=== PATIENT | female | born 1935 | race Caucasian/White ===

== ENCOUNTER 2021-02-24 15:17 | Emergency (ER) | payer MEDICARE, MEDICAID, SELFPAY ==
--- NOTE | ~2021-02-24 | XR_ITS ---
EXAMINATION: XR chest 2V DATE: 02/24/2021 17:04 INDICATION: 2 weeks of cough TECHNIQUE: PA and lateral views of the chest were obtained. COMPARISON: Chest radiograph dated 07/17/2017 FINDINGS: Unchanged mild hyperexpansion of lungs. A couple calcified nodules at the right lung base consistent with old granulomatous disease. An acute mild linear atelectasis/scarring at the lingula. No new airs pace opacities, pulmonary edema, pleural effusion or pneumothorax. Mild cardiomegaly. Mitral annular calcification. Three lead pacemaker/AICD seen with leads projecting over the expected locations of th e right atrial appendage, apex of the right ventricle and overlying the left ventricle likely having traversed the coronary sinus. Severe mid thoracic spondylosis. IMPRESSION: 1. Unchanged mild hyperexpansion of lungs and mild atelectasis/scarring at the lingula. No acute card iopulmonary disease. 2. Mild cardiomegaly. Reviewed, dictated and finalized at location H. LY LIFE COUNSELOR IMPRESSION: 1. Unchanged mild hyperexpansion of lungs and mild atelectasis/scarring at the lingula. No acute cardiopulmonary disease. 2. Mild cardiomegaly.
[2021-02-24 15:50] VITALS: BP 123/53; PULSE 81; RESP 18; TEMP 37.6; O2SAT 96
--- NOTE | 2021-02-24 17:40 | ED.URI ---
HPI - URI/Sore Throat General Chief Complaint: Upper Respiratory Infection Stated Complaint: poss bronchitis History of Present Illness HPI Narrative: This is a 85-year-old female that presents to the urgent care complaining a cough according to patient she believes she has bronchitis states that she gets it all the time. Patient states she do not feel good she has a runny nose congestion and she continues to cough patient denies any fever nausea and/or vomiting Related Data Home Medications Medication Instructions Recorded Confirmed carvedilol 12.5 mg PO DAILY 02/24/21 02/24/21 dicyclomine 10 mg PO TID 02/24/21 02/24/21 losartan 50 mg PO DAILY 02/24/21 02/24/21 simvastatin 20 mg PO DAILY 02/24/21 02/24/21 Allergies Allergy/AdvReac Type Severity Reaction Status Date / Time hydrocodone Allergy Unknown hallucinati Verified 02/24/21 15:59 ons Penicillins Allergy Unknown couldnt Verified 02/24/21 15:59 walk Review of Systems Review of Systems: Cough congestion runny nose All systems reviewed & are unremarkable except as noted in HPI and below PMFSH Comments At time as signature, I have reviewed and agree with nursing past medical, social, surgical and family history. Please see nursing chart for further information. There is no relevant family history pertinent to the presenting complaint. Exam Narrative: GENERAL:Well-appearing, well-nourished, and in no acute distress. HEAD:Normocephalic, EYES: PERRLA ENT: Nares clear, moderate rhinorrhea CHEST: Clear to auscultation. No respiratory distress. Normal peripheral pulses. ABDOMEN: Soft, normal active bowel sounds. EXTREMITIES: Normal range of motion. No edema. SKIN: Warm, dry, no rash. NEURO: No focal deficits. Alert and oriented x3. Course EXPLOSIVES OPERATOR/PA Physician Supervision Ordering Physician: Jorge Carballo APN Date of Service: 02/24/21 Procedure(s): XR chest 2V Accession Number(s): [id number] cc: Jorge Carballo APN; Alex, Miki Lowe MD~ EXAMINATION: XR chest 2V DATE: 02/24/2021 17:04 INDICATION: 2 weeks of cough TECHNIQUE: PA and lateral views of the chest were obtained. COMPARISON: Chest radiograph dated 07/17/2017 FINDINGS: Unchanged mild hyperexpansion of lungs. A couple calcified nodules at the right lung base consistent with old granulomatous disease. An acute mild linear atelectasis/scarring at the lingula. No new airspace opacities, pulmonary edema, pleural effusion or pneumothorax. Mild cardiomegaly. Mitral annular calcification. Three lead pacemaker/AICD seen with leads projecting over the expected locations of the right atrial appendage, apex of the right ventricle and overlying the left ventricle likely having traversed the coronary sinus. Severe mid thoracic spondylosis. IMPRESSION: 1. Unchanged mild hyperexpansion of lungs and mild atelectasis/scarring at the lingula. No acute cardiopulmonary disease. 2. Mild cardiomegaly. Reviewed, dictated and finalized at location H. MACY STUDENT Dictated By: Christiano Sharp MD 02/24/21 1707 Signed By: <Electronically signed by Christiano Sharp MD in OV>02/24/21 1710 Vital Signs Vital signs: Vital Signs Temperature 99.7 F H 02/24/21 15:50 Pulse Rate 81 02/24/21 15:50 Respiratory Rate 18 02/24/21 15:50 Blood Pressure 123/53 L 02/24/21 15:50 Pulse Oximetry 96 02/24/21 15:50 Temperature 99.7 F H 02/24/21 15:50 Pulse Rate 81 02/24/21 15:50 Respiratory Rate 18 02/24/21 15:50 Blood Pressure 123/53 L 02/24/21 15:50 Pulse Oximetry 96 02/24/21 15:50 Discharge Plan Discharge Clinical Impression: Bronchitis Upper respiratory infection Qualifiers: URI type: unspecified URI Qualified Code(s): J06.9 - Acute upper respiratory infection, unspecified Patient Disposition: Home, Self-Care Condition: Stable Instructions: An
== END 2021-02-24 17:45 | disposition home or self-care (01) ==
PROVIDERS: Emergency Provider Nurse Practitioner Family; PCP Family Medicine
DX: J40 Bronchitis, not specified as acute or chronic (principal); J06.9 Acute upper respiratory infection, unspecified; I10 Essential (primary) hypertension; Z96.642 Presence of left artificial hip joint; Z85.42 Personal history of malignant neoplasm of other parts of uterus; Z92.3 Personal history of irradiation; Z92.21 Personal history of antineoplastic chemotherapy
CPT/HCPCS: 71046; 99203; G0463

== ENCOUNTER 2022-06-06 09:41 | Emergency (ER) | payer MEDICARE, MEDICAID, SELFPAY ==
--- NOTE | ~2022-06-06 | XR_ITS ---
EXAMINATION: XR chest 2V DATE: 06/06/2022 10:15 INDICATION: Shortness of breath and cough. TECHNIQUE: Frontal and lateral views of the chest were obtained. COMPARISON: Chest 2 views 02/24/2021 FINDINGS: There is mild scarring at the lung apices. Calcified right lung nodules and calcified right hilar and mediastinal lymph nodes are consistent with old granulomatous disease. There is mild scarr ing in left lower lung zone. No pleural effusion or pneumothorax. The heart size is normal. There is a left chest pacer with leads in right atrium, right ventricle, and coronary sinus. IMPRESSION: 1. Stable mild scarring at the lung apices and in left lower lung zone. Reviewed, dictated and finalized at location D.
[2022-06-06 09:48] VITALS: BP 98/41; PULSE 59; RESP 20; TEMP 36.8; O2SAT 97
--- NOTE | 2022-06-06 09:52 | ED.URI ---
HPI - URI/Sore Throat General Chief Complaint: Upper Respiratory Infection Stated Complaint: Cough Time Seen by Provider: 06/06/22 09:52 Source: patient and RN notes reviewed History of Present Illness HPI Narrative: Patient is an 87-year-old female who presents to urgent care with complaints of a cough, dizziness and fatigue since Monday. Patient states that she has a history of bronchitis. Denies any known fevers at home. States that she has increased dizziness upon standing. Denies any nausea or vomiting. Patient states she took cough medicine last night but otherwise has not used anything else [id number]. Patient is here with her granddaughter. No other acute complaints. No acute distress noted. Patient aware of the plan of care. Some parts of this dictation were generated by voice recognition software and may contain typographical and/or grammatical inaccuracies. Related Data Home Medications Medication Instructions Recorded Confirmed carvedilol 12.5 mg tablet 12.5 mg PO DAILY 02/24/21 06/06/22 losartan 50 mg tablet 50 mg PO DAILY 02/24/21 06/06/22 simvastatin 20 mg tablet 20 mg PO DAILY 02/24/21 06/06/22 tizanidine 2 mg tablet 2 mg PO DIRECTED 06/06/22 06/06/22 Allergies Allergy/AdvReac Type Severity Reaction Status Date / Time hydrocodone Allergy Unknown hallucinati Verified 06/06/22 10:01 ons Penicillins Allergy Unknown couldnt Verified 06/06/22 10:01 walk Review of Systems Review of Systems: CONSTITUTIONAL: Denies fever, chills, or sweats. EYES: Denies visual changes, redness, or discharge. ENT: Denies rhinorrhea, congestion, sore throat, or otalgia. CARDIOVASCULAR: Denies chest pain, palpitations, or edema. RESPIRATORY: Reports of cough, and dyspnea GASTROINTESTINAL: Denies abdominal pain, nausea, vomiting, or diarrhea. GENITOURINARY: Denies dysuria or hematuria. SKIN: Denies rash or itching. MUSCULOSKELETAL: Denies back pain, joint pain, or myalgia. NEUROLOGIC: Reports of dizziness and fatigue All other systems reviewed are negative, except as documented in HPI. PMFSH Comments At the time of my signature, I reviewed and agree with the nursing past medical, surgical, social, and family history. There is no relevant family history pertinent to the patient complaint. Exam Narrative: GENERAL: This is a well-nourished, well-developed patient, in no apparent distress. HEAD: normocephalic, atraumatic. EYES: PERRL. Sclera clear/white. Vision is grossly intact. EARS: External ears normal NOSE: External nose normal with no obvious nasal discharge, nares without redness, no rhinorrhea. THROAT: Mucous membranes moist, posterior pharynx clear. NECK: Neck supple, non-tender without lymphadenopathy, masses or thyromegaly. CARDIOVASCULAR: Bradycardic RESPIRATORY: Coarse throughout with inspiratory wheezes bibasilar and diminished SKIN: warm, intact with no suspicious lesions or rash, good texture and turgor. NEURO: awake, alert, and oriented to person, place and time. There were no obvious focal neurologic abnormalities. EXTREMITIES: No clubbing, cyanosis, or edema. Course Course Level of Care: Express Care Visit Vital Signs Vital signs: Vital Signs Temperature 98.2 F 06/06/22 09:48 Pulse Rate 59 L 06/06/22 09:48 Respiratory Rate 20 06/06/22 09:48 Blood Pressure 98/41 L 06/06/22 09:48 Pulse Oximetry 97 06/06/22 09:48 Oxygen Delivery Room Air 06/06/22 09:48 Temperature 98.2 F 06/06/22 09:48 Pulse Rate 59 L 06/06/22 09:48 Respiratory Rate 20 06/06/22 09:48 Blood Pressure 98/41 L 06/06/22 09:48 Pulse Oximetry 97 06/06/22 09:48 Oxygen Delivery Room Air 06/06/22 09:48 Reviewed MDM - URI/Sore Throat MDM Narrative Medical decision making narrative: Explained lab and test results to the patient. She is aware that chest x-ray is negative for pneumonia. EKG is within normal limits, paced. Symptoms are consistent with a common cold/viral bronchit
--- NOTE | 2022-06-06 10:39 | ECG_ITS ---
Measurements Intervals [place] Rate: 63 P: 101 NE: 148 QRS: 115 QRSD: 122 T: 89 QT: 464 QTc: 476 Interpretive Statements ELECTRONIC ATRIAL PACEMAKER ELECTRONIC VENTRICULAR PACEMAKER atypical EKG NO PREVIOUS ECG AVAILABLE FOR COMPARISON Electronically Signed On 06-06-2022 12:28:14 CDT by Mickey Blue M.D.
== END 2022-06-06 11:17 | disposition left against medical advice (07) ==
PROVIDERS: Emergency Provider Nurse Practitioner Family; PCP Family Medicine
DX: J40 Bronchitis, not specified as acute or chronic (principal); N39.0 Urinary tract infection, site not specified; I95.9 Hypotension, unspecified; E78.00 Pure hypercholesterolemia, unspecified; I10 Essential (primary) hypertension; Z96.642 Presence of left artificial hip joint; Z85.42 Personal history of malignant neoplasm of other parts of uterus; Z92.21 Personal history of antineoplastic chemotherapy; Z92.3 Personal history of irradiation; Z95.0 Presence of cardiac pacemaker
CPT/HCPCS: 71046; 81003; 87077; 87086; 87186; 93005; 99213; G0463

== ENCOUNTER 2023-04-24 13:58 | Emergency (ER) | payer MEDICARE, MEDICAID, SELFPAY ==
[2023-04-24 14:17] VITALS: BP 131/52; PULSE 60; RESP 16; TEMP 36.4; O2SAT 100
--- NOTE | 2023-04-24 14:35 | ED.URI ---
HPI - URI/Sore Throat General Chief Complaint: Upper Respiratory Infection Stated Complaint: Runny Nose Source: patient Mode of arrival: ambulatory Limitations: no limitations History of Present Illness HPI Narrative: 88-year-old female presented for complaint of blowing her nose and sneezing this morning. States it is better since arriving in clinic. Denies any other complaints or concerns. Related Data Home Medications Medication Instructions Recorded Confirmed losartan 50 mg tablet 50 mg PO DAILY 02/24/21 04/24/23 simvastatin 20 mg tablet 20 mg PO DAILY 02/24/21 04/24/23 diphenoxylate-atropine 2.5 2.5 tablet PO QID PRN Diarrhea 04/24/23 04/24/23 mg-0.025 mg tablet Allergies Allergy/AdvReac Type Severity Reaction Status Date / Time hydrocodone Allergy Unknown hallucinati Verified 06/06/22 10:01 ons Penicillins Allergy Unknown couldnt Verified 06/06/22 10:01 walk Review of Systems Review of Systems: CONSTITUTIONAL: Denies body aches, fever, chills, or sweats. EYES: Denies visual changes, redness, or discharge. ENT: reports rhinorrhea, denies sore throat, or otalgia. CARDIOVASCULAR: Denies chest pain, palpitations, or edema. RESPIRATORY: Denies cough or dyspnea. GASTROINTESTINAL: Denies abdominal pain, nausea, vomiting, or diarrhea. GENITOURINARY: Denies dysuria or hematuria. SKIN: Denies rash, itching, or wounds. MUSCULOSKELETAL: Denies back pain, joint pain, or myalgia. NEUROLOGIC: Denies headache, numbness, tingling, or weakness. All systems reviewed & are unremarkable except as noted in HPI and below [facility] Past Medical History Medical History (Updated 04/24/23 @ 14:44 by Vivi Kuhn, [place]) HTN (hypertension) Comments At time of signature, I have reviewed and agree with nursing past medical, surgical, social and family history unless otherwise noted. Please see nursing chart for further information. There is no relevant family history pertinent to the presenting complaint Exam Narrative: GENERAL: Well-appearing EYES: EOMI. No redness or drainage. Conjunctivae normal. ENT: Mucous membranes pink and moist. No rhinorrhea. NECK: Normal AROM. Supple. CHEST: No respiratory distress. Clear to auscultation. HEART: Regular rate and rhythm. No murmur appreciated. Normal peripheral pulses. ABDOMEN: Soft, nontender, nondistended, normal active bowel sounds. EXTREMITIES: Normal range of motion. No edema. SKIN: Warm, dry, no rash. Capillary refill normal. Normal skin turgor. NEURO: No focal deficits. Alert and oriented x3. Gait steady. PSYCH: Normal affect. Course Course Emergency Course: Patient is aware of diagnosis, understands and agrees to treatment plan. Anticipatory guidance given. Patient agrees to follow-up as directed and is aware of reasons to seek care at the emergency department. Portions of this record may have been created with voice recognition software Level of Care: Express Care Visit Vital Signs Vital signs: Vital Signs Temperature 97.6 F 04/24/23 14:17 Pulse Rate 60 04/24/23 14:17 Respiratory Rate 16 04/24/23 14:17 Blood Pressure 131/52 L 04/24/23 14:17 Pulse Oximetry 100 04/24/23 14:17 Oxygen Delivery Room Air 04/24/23 14:17 Temperature 97.6 F 04/24/23 14:17 Pulse Rate 60 04/24/23 14:17 Respiratory Rate 16 04/24/23 14:17 Blood Pressure 131/52 L 04/24/23 14:17 Pulse Oximetry 100 04/24/23 14:17 Oxygen Delivery Room Air 04/24/23 14:17 MDM - URI/Sore Throat MDM Narrative Medical decision making narrative: Negative COVID test reviewed with patient. Discussed physical exam findings. Advised supportive measures and signs/symptoms to go to the ER. Pt is appropriate for outpt treatment and f/u. Differential Diagnosis Differential diagnosis: Likely upper respiratory infection, sinusitis, viral infection and other (seasonal allergies, rhinits) Discharge Plan Discharge Clinical Impression: Acu
== END 2023-04-24 14:44 | disposition home or self-care (01) ==
PROVIDERS: Emergency Provider Nurse Practitioner Family; PCP Family Medicine
DX: J00 Acute nasopharyngitis [common cold] (principal); Z20.822 Contact with and (suspected) exposure to COVID-19; I10 Essential (primary) hypertension
CPT/HCPCS: 87426; 87804; 99213; G0463

== ENCOUNTER 2024-12-02 11:13 | Emergency (ER) | payer MEDICARE, MEDICAID, SELFPAY ==
--- OUTSIDE RECORDS SUMMARY | 2007-08-14 08:25 | XMS_ITS | Continuity of Care Document ---
Author Organization [facility] Address [address] [place] [address] [place] [address] Phone Care Team Providers Care Photographer Aerial Name Role Phone Ankur Valladares MD Unavailable Unavailable Procedures Procedure Date Eye Exam, New Patient Advance Directives Directive Yes / No Effective Date File Name No Information Encounters Encounter Description Practice Location Reason(s) For Visit Diagnoses Date Provider Providers Copied on Encounter [facility], [address] [place] [address] [address], [place], [place], [id number], [place] tel:[phone] SEC [facility] Professional No Information 0-200 8 Jacquelyn Pascual. [address] [facility] [place], [place], [address], [place]. tel:[phone] Referring Provider: Johnny Melgoza MD, [address] [place], [address]. tel:[phone] Family History Family Member Type Diagnosis Age At Onset No Information Payers Payer name Insurance type Covered democrat ID Authoriza tion(s) No Information Social History Type Description Quantity Date Captured Comments Sex Female Smoking Status No Information Chief Complaint And Reason For Visit No Information Reason For Referral Reason For Referral No Information History Of Present Illness Encounter Date Complaint History Of Prese nt Illness No Information Functional Status Date Functional Assessmen t No Information Instructions Date Instruction Additional Infor mation No Information Assessments Type Assessment Date No Information Patient Care Teams Name Effective Dates (start - stop) Status Members No Information
--- OUTSIDE RECORDS SUMMARY | 2007-08-14 08:25 | XMS_ITS | Continuity of Care Document ---
Author Organization [facility] Address [address] [place] [address] [place] [address] Phone Care Team Providers Care Web Assistant Name Role Phone Ankur Valladares MD Unavailable Unavailable Procedures Procedure Date Eye Exam, New Patient Advance Directives Directive Yes / No Effective Date File Name No Information Encounters Encounter Description Practice Location Reason(s) For Visit Diagnoses Date Provider Providers Copied on Encounter [facility], [address] [place] [address] [address], [place], [place], [id number], [place] tel:[phone] SEC [facility] Professional No Information 0-200 8 Jacquelyn Pascual. [address] [facility] [place], [place], [address], [place]. tel:[phone] Referring Provider: Johnny Melgoza MD, [address] [place], [address]. tel:[phone] Family History Family Member Type Diagnosis Age At Onset No Information Payers Payer name Insurance type Covered constitution party ID Authoriza tion(s) No Information Social History [...]
--- OUTSIDE RECORDS SUMMARY | 2022-12-06 04:30 | XMS_ITS | Continuity of Care Document ---
Author Organization [employer] [facility] Address [address] [place] [address] Phone Care Team Providers Care Exhibition Carver Name Role Phone Saloni Nam OD Unavailable Unavailable Allergies, Adverse Reactions, Alerts Substance Reaction Status Criticality PENICILLIN Active No Information Medications Medication Instructions Dosage Effective Dates (start - stop) Status Comments Miebo 100 % eye drops instill 1 drop by ophthalmic route 4 times every day into affected eye(s) 1.00 drop - Active carvedilol 12.5 mg tablet take 1 tablet by oral route 2 times every day with food 12.5 MG - Active ferrous sulfate 325 mg (65 mg iron) tablet take 1 tablet by oral route every day 325 MG - Active potassium chloride ER 20 mEq tablet,extended release take 1 tablet by oral route every day with food 20 MEQ - Active Glucosamine Complex-MSM capsule once daily - Active Fiber (psyllium husk) 0.4 gram capsule once daily - Active Calcium 500 With D 500 mg (1,250 mg)-400 unit tablet take one tablet daily - Active acetaminophen 500 mg tablet take 2 tablet by oral route every 6 hours as needed 1000 MG - Active aspirin 81 mg tablet,delayed release take 1 tablet by oral route every day 81 MG - Active losartan 50 mg tablet take 1 tablet by oral route every day 50 MG - Active multivitamin tablet take 1 tablet by oral route every day with food - Active simvastatin 20 mg tablet take 1 tablet by oral route every day in the evening 20 MG - Active Probiotic 10 billion cell capsule take one tablet daily - No Longer Active spironolactone 25 mg tablet take 1 tablet by oral route every day 25 MG - No Longer Active Procedures Procedure Date No Charge Optomap Fundus Photos Oct-05-05 023 Refraction Office/outpatient Visit, Est No Charge [facility] After Cataract Laser Surgery No Charge Refraction Post-op Follow-up Visit Fundus Photography W/ Report No Charge Refraction After Cataract Laser Surgery Eye Exam, New Patient Advance Directives Directive Yes / No Effective Date File Name No Information Encounters Encounter Description Practice Location Reason(s) For Visit Diagnoses Date Provider Providers Copied on Encounter Office/outpa tient Visit, Est [facility], [address] [place] [address] [address], [place], [place], [address], [place] tel:[phone] SEC Jame ACHARYA Professional Cataract check (chief complaint) Dry eye syndrome of bilateral lacrimal glandsChoroid al nevus of left eyeRPE mottling of maculaPresenc e of intraocular lens Oct-0 3 Cyril OD Saloni. [address] [place] [address] [address], [place], [place], [address], [place]. tel:[phone] Referring Provider: Miki Johnson MD, [facility] [place], [address]. tel:[phone] [facility], [address], [place], [place], [address], [place] tel:[phone] SEC Carr PATRIZIA Professional 1 month s/p YAG PC (chief complaint) Post op visitOther secondary cataract, right eye Oct-0 1 Pancho Resendiz. [address] [facility], [address], [place], [place], [address], [place]. tel:[phone] Referring Provider: Miki Johnson MD, [address] [place], [address]. tel:[phone] [facility], [address], [place], [place], [address], [place] tel:[phone] SEC Jame [place] Professional Complete Exam (chief complaint) Presence of intraocular lensDry eye syndrome of bilateral lacrimal glandsChoroid al nevus of left eyeOther secondary cataract, bilateralRPE mottling of maculaOther secondary cataract, left eye Sep-1 0- 1 Pancho Resendiz. [address] [facility], [address], [place], [place], [address], [place]. tel:[phone] Referring Provider: Miki Johnson MD, [address] [place], [address]. tel:[phone] [facility], [address] [facility] [address], [place], [place], [address], [place] tel:[phone] Tom No Information Sep-0 1 Mcnamara OD Mickey. [address] [facility] [place], [address], [place]. tel:[phone] Family History Family Member Type Diagnosis Age At Onset No Information Payers Payer name Insurance type Covered libertarian ID Authoriza tican(s) AARP Medicare Complete CI [id number] Medicaid [facility] [id number] Social History Type Description Quantity Date Captured Comments Alcohol Use Details No Caffeine Use Details Tobacco Use Status Ex-cigarette smoker 023 Smoking Status Former smoker Smoking Tobacco Use Details Cigarette: Age Started: 24, Age Stopped: 35, Years Used 11 Cigarette: 3 Packs per day, Pack Year: 33 Sex Female Chief Complaint And Reason For Visit From encounter dated '12/06/2022 09:30'. Cataract check (chief complaint). Description: The 87 year old patient presents for evaluation of Cataract check in the right eye and left eye. Pt. states she feels her vision is good with her glasses at distance. Pt does c/o after 15 minutes of reading or doing close work vision gets blurry. Pt. does states her OD has felt sore but past 2 weeks has felt better. Pt. not using any drops at present. Reason For Referral Reason For Referral No Information Plan Of Treatment Date Type Action Status Goal Tobacco cessation counseling completed Patient Education Learning About YAG Lase r Capsulotomy completed Patient Education Learning About YAG Lase r Capsulotomy completed History Of Present Illness Encounter Date Complaint History Of Prese nt Illness Cataract check The 87 year old patient presents for evaluation of Cataract check in the right eye and left eye. Pt. states she feels her vision is good with her glasses at distance. Pt does c/o after 15 minutes of reading or doing close work vision gets blurry. Pt. does states her OD has felt sore but past 2 weeks has felt better. Pt. not using any drops at present. 1 month s/p YAG PC The 85 year o ld female presents for evaluation of 1 month s/p YAG PC in the left eye and YAG PC OD. Patient states she is unsure if VA is better with the left eye since the laser. Patient thought VA was better after but not sure now. c/o with the right eye is difficulty driving at night due to glare and trouble seeing solitaire on her phone. Complete Exam The 85 year old female presents for evaluation of Complete Exam in the right eye and left eye. 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 Pt reports MILLY was 3 yrs ago. Pt she has trouble playing solitaire on her phone, she doesn't drive anymore because of her VA, and is bothered by glare from lights, OU, x couple yrs. Pt reports she doesn't use any gtts, OU. Functional Status Date Functional Assessmen t No Information Instructions Date Instruction Additional Infor mation Impression/Plan Impression/Plan Impression/Plan Assessments Type Assessment Date assessment Dry eye syndrome of bilateral la crimal glands assessment Choroidal nevus of left eye assessment RPE mottling of macula assessment Presence of intraocular lens Dec Patient Care Teams Name Effective Dates (start - stop) Status Members No Information
--- OUTSIDE RECORDS SUMMARY | 2022-12-06 04:30 | XMS_ITS | Continuity of Care Document ---
Author Organization [facility] Address [address] [facility] [address] [place] [address] Phone Care Team Providers Care Mellowing Machine Operator Name Role Phone Saloni Nam OD Unavailable [...] Copied on Encounter Office/outpa tient Visit, Est [facility], [address] [place] [address] [address], [place], [place], [address], [place] tel:[phone] SEC Jame ACHARYA Professional Cataract check (chief complaint) Dry eye syndrome of bilateral lacrimal glandsChoroid al nevus of left eyeRPE mottling of maculaPresenc e of intraocular lens Oct-0 3 Cyril OD Saloni. [address] [place] [address] [address], [place], [place], [address], [place]. tel:[phone] Referring Provider: Miki Johnson MD, [facility] [place], [address]. tel:[phone] [facility], [address], [place], [place], [address], [place] tel:[phone] SEC [place] PATRIZIA Professional 1 month s/p YAG PC (chief complaint) Post op visitOther secondary cataract, right eye Oct-0 1 Pancho Resendiz. [address] [facility], [address], [place], [place], [address], [place]. tel:[phone] Referring Provider: Miki Johnson MD, [address] [place], [address]. tel:[phone] [facility], [address], [place], [place], [address], [place] tel:[phone] SEC Jame [place] Professional Complete Exam (chief complaint) Presence of intraocular lensDry eye syndrome of bilateral lacrimal glandsChoroid al nevus of left eyeOther secondary cataract, bilateralRPE mottling of maculaOther secondary cataract, left eye Sep-1 0- 1 Pancho Resendiz. [address] [facility], [address], [place], [place], [address], [place]. tel:[phone] Referring Provider: Miki Johnson MD, [address] [place], [address]. tel:[phone] [facility], [address] [facility] [address], [place], [place], [address], [place] tel:[phone] Tom No Information Sep-0 1 Mcnamara OD Mickey. [address] [place], [address], [place]. tel:[phone] Family History Family Member Type Diagnosis Age At Onset No Information Payers Payer name Insurance type Covered democrat ID Authoriza tican(s) AARP Medicare Complete CI [id number] Medicaid [facility] [id number] Social History Type Description Quantity Date Captured [...]
--- NOTE | ~2024-12-02 | XR_ITS ---
EXAMINATION: XR ribs RT 2V, 12/02/2024 11:45 CDT HISTORY: fall COMPARISON: No comparisons available. Findings: Nondisplaced fracture of the lateral 10th rib No significant degenerative changes. Soft tissues unremarkable. Impression: Fracture detailed above Reviewed, dictated and finalized at location P. Impression: Fracture detailed above
[2024-12-02 11:20] VITALS: BP 134/59; PULSE 78; RESP 20; TEMP 36.6; O2SAT 100
--- NOTE | 2024-12-02 11:36 | ED.FEMALEGU ---
HPI - Female Genitourinary General Chief complaint: Urogenital-Female Stated complaint: Fall Injury/Urinary Pain Time Seen by Provider: 12/02/24 11:38 Source: patient and RN notes reviewed Mode of arrival: ambulatory Limitations: no limitations History of Present Illness HPI Narrative: 89-year-old female presents with concern for right flank pain that radiates to the right upper abdomen. She reports 3 days ago she was trying to sit down on the toilet because she felt like she was going to black out when she fell into the bathtub on her right side. She reports she blacks out often because her blood pressure gets low. She reports she has increased her fluid intake over the week and has been drinking medial supplements to improve her blood pressure. She was recently treated for UTI with Macrobid. She is wanting to make sure the UTI is cleared. She denies fever, body aches, chills, sweats, nausea, vomiting, bruising. MD elicited complaint: flank pain and other Related Data Home Medications ?Medication ?Instructions ?Recorded ?Confirmed ?Last Taken ?Type losartan 50 mg tablet 50 mg PO DAILY 02/24/21 04/24/23 Unknown History simvastatin 20 mg tablet 20 mg PO DAILY 02/24/21 04/24/23 Unknown History diphenoxylate-atropine 2.5 2.5 tablet PO QID PRN Diarrhea 04/24/23 04/24/23 Unknown History mg-0.025 mg tablet cholestyramine (with sugar) 4 gram ea 12/02/24 Unknown History oral powder donepezil 5 mg tablet mg 12/02/24 Unknown History fluoxetine 20 mg capsule mg 12/02/24 Unknown History sacubitril 24 mg-valsartan 26 mg tablet 12/02/24 Unknown History tablet (Entresto) Allergies Allergy/AdvReac Type Severity Reaction Status Date / Time hydrocodone Allergy Unknown hallucinati Verified 12/02/24 11:31 ons Penicillins Allergy Unknown couldnt Verified 12/02/24 11:31 walk Review of Systems Review of Systems: CONSTITUTIONAL: Denies malaise, chills, sweats, or fever. CARDIOVASCULAR: Denies chest pain, palpitations, or edema. RESPIRATORY: Denies cough or dyspnea. GASTROINTESTINAL: Denies abdominal pain, nausea, vomiting, diarrhea GENITOURINARY: Denies dysuria, frequency, urgency, suprapubic pressure. Denies flank pain or hematuria. SKIN: Denies bruising, rash or itching. MUSCULOSKELETAL: Reports right back/rib pain pain. Denies myalgia. All systems reviewed & are unremarkable except as noted in HPI and below [facility] Past Medical History Medical History (Updated 12/02/24 @ 12:14 by Sanam Carlin NP) HTN (hypertension) Comments At time of signature, agree with nursing past medical, surgical, social and family history. There is no relevant family history pertinent to the presenting complaint Exam Narrative: GENERAL: Well-appearing, well-nourished, and in no acute distress. HEAD: Normocephalic. EYES: PERRLA, conjunctivae clear. NECK: Supple. No lymphadenopathy CHEST: Clear to auscultation. No respiratory distress. HEART: Regular rate and rhythm. ABDOMEN: Soft, nontender upon palpation, nondistended, no palpable or pulsatile masses, no guarding. No CVA tenderness. Right posterior rib pain, right anterior rib pain SKIN: Warm, dry, no rash. No bruising, open skin noted NEURO: Alert and oriented x3. PSYCH: Normal mood and affect Course Course Emergency Course: Patient is aware of diagnosis, understands and agrees to treatment plan. Anticipatory guidance given. Patient agrees to follow-up as directed and is aware of reasons to seek care at the emergency department. Portions of this record may have been created with voice recognition software Level of Care: Express Care Visit Vital Signs Vital signs: Reviewed. MDM - Female Genitourinary MDM Narrative Medical decision making narrative: Exam findings and UA show no acute concerns or changes; patient is non-toxic appearing and is in no distress. Patient is appropriate for outpatient treatment and follow-up. Differential Diagnosis Differential diagnosis: Likely urinary tract infection and cystitis Imaging Data My impression: My fracture statement Radiologist's impression: Seven EXAMINATION: XR ribs RT 2V, 12/02/2024 11:45 CDT HISTORY: fall COMPARISON: No comparisons available. Findings: Nondisplaced fracture of the lateral 10th rib No significant degenerative changes. Soft tissues unremarkable. Impression: Fracture detailed above Critical Care Time Critical Care Time Critical Care Time: No Discharge Plan Discharge Clinical Impression: Fracture of rib Patient Disposition: Home Condition: Stable Instructions: Rib Fracture (ED) Additional Instructions: Pain may get worse for a week and last for up to eight weeks.The most important thing is to get your pain under control. Breathing exercises will not be effective unless your pain is controlled. Take Tylenol as needed for pain. Strenuous activities should be avoided for the first 3-4 weeks, after which you can commence physical activity as pain allows. If the pain is increasing you may be doing too much. Cough and deep breath at least 10 times per hour. Try holding a cushion firmly against the painful site when you deep breath and cough to decrease the pain. Sit out of bed and keep moving as much as you feel comfortable. This will decrease the risk of developing lung complications. You have any worsening symptoms urgent concerns please go to the emergency room Patient Language: Icelandic Prescriptions: No Action losartan 50 mg tablet 50 mg PO DAILY simvastatin 20 mg tablet 20 mg PO DAILY diphenoxylate-atropine 2.5-0.025 mg tablet 2.5 tablet PO QID PRN (Reason: Diarrhea) donepezil 5 mg tablet fluoxetine 20 mg capsule cholestyramine (with sugar) 4 gram powder sacubitril-valsartan [Entresto] 24-26 mg tablet Follow-up/Referrals: Harms,Miki Lowe M.D. [Primary Care Provider] Referral Note: Rib fracture Time of Disposition: 12:23
[2024-12-02 11:44] LABS: EDUAAPPEAR Clear; EDUABILI Negative (Negative); EDUABLOOD Negative (Negative); EDUACOLOR1 Yellow; EDUAGLUCOSE Negative (Negative); EDUAKETONE Negative (Negative); EDUALEUKO Trace (Negative); EDUANITRATE Negative (Negative); EDUAPH 5.5; EDUAPROTEIN Negative (Negative); EDUASPGRAVITY 1.020; EDUAUROBILI 0.2
--- OUTSIDE RECORDS SUMMARY | 2024-12-02 11:50 | XMS_ITS | Encounter Summary ---
Author Organization [facility] Healthcare Address [address] [place] [address] Care Team Providers Care Associate Professor Of Music Name Role Phone Kane Jara MD Unavailable [phone] Puja Clement NP Unavailable [phone] Miki Johnson MD Primary Care Provider [phone] Brianda Lopez MD Unavailable [phone] Vito Pang MD Unavailable [phone] Chaim Mitchell MD Unavailable [phone] Andree Calloway MA Unavailable [phone] Anne-Marie Graves RN Unavailable [phone] Encounter Details Date Type Department Care Team (Late st Contact Info) Description 04/09/2024 Telephone [facility] [address] [place] [address] Miki Johnson MD [address] [place] [address] Social History Tobacco Use Types Packs/Day Years Used Date Smoking Tobacco: Former Cigarettes 1.5 11 1 971 - 1982 Smokeless Tobacco: Never Alcohol Use Standard Drinks/Week Comments No 0 (1 standard drink = 0.6 oz pur e alcohol) Social Connection and Isolation Panel Answer Date Recorded In a typical week, how many times do you talk on the phone with family, friends, or neighbors? More than three times a week 03/22/2021 How often do you get togethe r with friends or relatives? Three times a week 03/22/2021 Attends Sabianist Services Not on file 03/22 Do you belong to any clubs o r organizations such as nondenominational groups, unions, fraternal or athletic groups, or school groups? No 03/22/2021 How often do you attend meet ings of the clubs or organizations you belong to? Never 03/22/2021 Are you , , di vorced, , never , or living with a partner? 03/22/2021 AUDIT-C Answer Date Recorded Q1: How often do you have a drink containing alc ohol? Never 02/08/2024 Average Number of Drinks Not on file 024 Frequency of Binge Drinking Not on file 07/2023 Overall Financial Resource Strain (CARDIA) Answe r Date Recorded How hard is it for you to pa y for the very basics like food, housing, medical care, and heating? Not hard at all 03/22/2021 PHQ-2 Answer Date Recorded PHQ-2 Total Score (If total score is 3 or more points, staff should administer the PHQ-9) 0 11/09/2023 PRAPARE - Transportation Answer Date Re corded In the past 12 months, has l ack of transportation kept you from medical appointments or from getting medications? No 03/06 In the past 12 months, has l ack of transportation kept you from meetings, work, or from getting things needed for daily living? No 03/22/2021 Housing Stability Vital Sign Answer Ney e Recorded In the last 12 months, was t here a time when you were not able to pay the mortgage or rent on time? No 03/22/2021 In the last 12 months, how many places have you lived? 1 03/22/2021 In the last 12 months, was t here a time when you did not have a steady place to sleep or slept in a longterm (including now)? No 03/22/2021 Personal Safety Answer Date Recorded Have you ever been in or are you currently in a harmful physical or emotional relationship or is someone making you feel afraid or unsafe? 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 [address] [place] [address] Draw Frame Operator Obstetrics and Gynecology 12/17/18 Puja Clement NP [address] [facility] [address] [place] [address] Nurse Practitioner Gastroenterology 12/17/18 Brianda Lopez MD [address] [place] [address] Consulting Physician Gastroenterology 03/20/21 Vito Pang MD [address] [facility] [address] [place] [address] Surgeon General Surgery 01/27/24 Chaim Mitchell MD [address] [facility] [address] [place] [address] Consulting Physician Cardiovascular Disease 09/12/24 Andree Calloway MA [address] [place] [address] [address] [place] [address] ACO Care Data Deliverables Manager 10/25/24 10/27/24 Anne-Marie Graves RN [address] [place] [address] [address] [place], [place] [id number] Assistant Mechanic 10/28/24 11/18/24 documented as of this encounter
--- OUTSIDE RECORDS SUMMARY | 2024-12-02 11:50 | XMS_ITS | Encounter Summary ---
Author Organization [facility] Healthcare Address [address] [place] [address] Care Team Providers Care Cover Operator Name Role Phone Kane Jara MD Unavailable [phone] Puja Clement NP Unavailable [phone] Miki Johnson MD Primary Care Provider [phone] Brianda Lopez MD Unavailable [phone] Barby Hopson MA Unavailable [phone] Vito Pang MD Unavailable [phone] Chaim Mitchell MD Unavailable [phone] Andree Calloway MA Unavailable [phone] Anne-Marie Graves RN Unavailable [phone] Reason for Visit * Reason Onset Date Comments Scheduling Appointments 04/26/2021 Reminder call for DEXA. Encounter Details Date Type Department Care Team (Late st Contact Info) Description 04/26/2021 Telephone [facility] [address] [place] [address] Otoniel Booth RT Scheduling Appointments (Reminder call for DEXA. ) Social History Tobacco Use Types Packs/Day Years [...] relatives? Three times a week 03/22/2021 Attends Worship Services Not on file 03/22 Do you belong to any clubs o r organizations such as hoahaoism groups, unions, fraternal or athletic groups, or school groups? No 03/22/2021 How often do you attend meet ings of the clubs or organizations you belong to? Never 03/22/2021 Are you , , di vorced, , never , or living with a partner? 03/22/2021 AUDIT-C Answer Date Recorded Q1: How often do you have a drink containing alc ohol? Never 03/18/2021 Average Number of Drinks Not on file 022 Q3: How often do you have si x or more drinks on one occasion? Never 03/18/2021 Overall Financial Resource Strain (CARDIA) Answe r Date Recorded How hard is it for you to pa y for the very basics like food, housing, medical care, and heating? Not hard at all 03/22/2021 PHQ-2 Answer Date Recorded PHQ-2 Total Score 0 03/25/2021 PRAPARE - Transportation Answer Date Re corded [...] place to sleep or slept in a nursing home (including now)? 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 difficile suspected 12/15/2023 12/18/202312/15 3:07 AM CDT C. difficile suspected 12/18/2023 12/18/202312/17 4:25 PM CDT documented as of this encounter Care Teams Cover Operator Relationship Specialty Start Date End Date Miki Johnson MD [address] [place] [address] PCP - General 01/21/19 Kane Jara MD [address] [facility] [address] [place] [address] Animal Trainer Supervisor Obstetrics and Gynecology 12/17/18 Puja Clement NP [address] [facility] [address] [place] [address] Nurse Practitioner Gastroenterology 12/17/18 Brianda Lopez MD [address] [place] [address] Consulting Physician Gastroenterology 03/20/21 Barby Hopson MA [address] [place] [address] [address] [place], [place] [id number] ACO Care Wall Worker 04/14/22 04/14/22 Vito Pang MD [address] [facility] [address] [place] [address] Surgeon General Surgery 01/27/24 Chaim Mitchell MD [address] [facility] [address] [place] [address] Consulting Physician Cardiovascular Disease 09/12/24 Andree Calloway MA [address] [place] [address] [address] [place] [address] ACO Care Wall Worker 10/25/24 10/27/24 Anne-Marie Graves RN [address] [place] [address] [address] [place] [address] Chef De Cuisine 10/28/24 11/18/24 documented as of this encounter
--- OUTSIDE RECORDS SUMMARY | 2024-12-02 11:50 | XMS_ITS | Encounter Summary ---
Author Organization [facility] Address [address] [place] [address] Phone Care Team Providers Care Cognos Analyst Name Role Phone Kourtney Miller Primary Care Provider Unavailab Miki Juarez MD Primary Care Provider Ashley Núñez LPN Unavailable Unavailabl Ayana Raymond DO Primary Care Provider Ashley Núñez LPN Unavailable UnavailOpal Todd RN Unavailable [phone] Kane Jara MD Unavailable [phone] Puja Clement NP Unavailable [phone] Miki Johnson MD Primary Care Provider Belinda Gross RN Unavailable [phone] Brianda Lopez MD Unavailable [phone] Barby Hopson MA Unavailable [phone] Vito Pang MD Unavailable Chaim Mitchell MD Unavailable [phone] Andree Calloway MA Unavailable [phone] Anne-Marie Graves RN Unavailable [phone] Encounter Details Date Type Department Care Team (Late st Contact Info) Description 03/22/2017 Orders Only [facility] ProviderBrandy MD [address] [place] [address] Social History Tobacco Use Types Packs/Day Years Used Date Smoking Tobacco: Former Smokeless Tobacco: Never Comments:Smoking History Pac ks/day: 3 Packs Alcohol Use Standard Drinks/Week Comments No 0 (1 standard drink = 0.6 oz pur e alcohol) Comments No Sex and Gender Information Value Date Recorded Sex Assigned at Not on file Legal Sex Female 10:33 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 us Historical Provider LAB BLOOD ORDERABLES Opal l Result documented in this encounter Visit Diagnoses Not on filedocumented in this encounter Additional Health Concerns Infection Onset Date Last Indicated Resolved Time COVID: Suspected 03/01/2021 03/01/2021 03/01/2021 8:05 PM FREELANCE WEB DESIGNER C. difficile suspected 12/15/2023 12/18/202312/15 3:07 AM CDT C. difficile suspected 12/18/2023 12/18/202312/17 4:25 PM CDT documented as of this encounter Care Teams Cognos Analyst Relationship Specialty Start Date End Date Kourtney Miller PCP - General 07/29/16 05/21/17 Miki Johnson MD [address] [place] [address] PCP - General 05/22/17 12/31/17 Ayana Harvey DO [address] [place] [address] PCP - General Family Medicine 01/01/18 01/20/19 Miki Johnson MD [address] [place] [address] PCP - General 01/21/19 Ashley Núñez LPN [address] [place] [address] Cartridge Feeder 10/26/17 10/26/17 Ashley Núñez LPN [address] [place] [address] Cartridge Feeder 01/12/18 03/15/18 Opal Sloan RN [address] [place] [place] [address] Cartridge Feeder 03/19/18 10/24/18 Kane Jara MD [address] [place] [address] [address] [place] [address] Molecular Spectroscopist Obstetrics and Gynecology 12/17/18 Puja Clement NP [address] [place] [address] [address] [place] [address] Nurse Practitioner Gastroenterology 12/17/18 Belinda Gross, BRE [address] [place] [address] [address] [place] [address] Cartridge Feeder 03/08/21 04/21/21 Brianda Lopez MD [address] [place] [address] [address] [place] [address] Consulting Physician Gastroenterology 03/20/21 Barby Hopson MA [address] [place] [address] [address] [place], [place] [id number] ACO Care Shear Operator Helper 04/14/22 04/14/22 Vito Pang MD [address] [place] [address] [address] [place] [address] Surgeon General Surgery 01/27/24 Chaim Mitchell MD [address] [facility] [address] [place] [address] Consulting Physician Cardiovascular Disease 09/12/24 Andree Calloway MA [address] [place] [address] [address] [place], [place] [id number] ACO Care Shear Operator Helper 10/25/24 10/27/24 Anne-Marie Graves RN [address] [place] [address] [address] [place], [place] [id number] Cartridge Feeder 10/28/24 11/18/24 documented as of this encounter
--- OUTSIDE RECORDS SUMMARY | 2024-12-02 11:50 | XMS_ITS | Clinical Summary ---
Author Organization [facility] Address [address] [place] [address] Care Team Providers Care Train System Operator Name Role Phone Kane Jara MD Unavailable [phone] Puja Clement NP Unavailable [phone] Miki Johnson MD Primary Care Provider [phone] Brianda Lopez MD Unavailable [phone] Vito Pang MD Unavailable [phone] Trever Mitchell MD Unavailable [phone] Allergies Active Allergy Reactions Criticality Noted Date Comments Hydrocodone Hallucinations Medium 02/24/2021 Penicillins Other (See comments) Medium 02/24/2021 Other reaction(s): couldnt walk Medications glucosam/chond- msm 2/C/D3/caron (GLUCOSAM-CHOND R-MSM WITH VIT D ORAL)Indication s:joint health Take 1 Dose by mouth daily 03/22/19 19 Active acetaminophen (TYLENOL) 325 mg tablet Take 2 tablets (650 mg total) by mouth every 4 (four) hours as needed for pain Active multivitamin with minerals tablet Take 1 tablet by mouth daily Active aspirin 81 mg chewable tablet Take 1 tablet (81 mg total) by mouth daily Active ferrous fumarate 324 mg (106 mg iron) tablet Take 324 mg by mouth daily Active calcium carbonate-vitam in D3 1500 mg (600 mg elemental) -200 units per tablet Take 1 tablet by mouth daily 2 tablets PO in AM and 1 at HS Active tiZANidine (ZANAFLEX) 2 mg tablet Take 1 tablet (2 mg total) by mouth every 8 (eight) hours as needed for muscle spasms 30 tablet 1 10/16/19 24 Active FLUoxetine (PROzac) 20 mg capsuleIndicati ons:Mild episode of recurrent major depressive disorder Take 1 capsule (20 mg total) by mouth daily 90 capsule 4 06/05/19 25 026 Active carvediloL (COREG) 3.125 mg tablet 06/21/19 25 Active ketoconazole (NIZORAL) 2 % shampooIndicati ons:Seborrheic Dermatitis Apply topically 2 (two) times a week Apply to damp skin, lather, leave on 5 minutes, and rinse 120 mL 06/21/19 25 Active simvastatin (ZOCOR) 20 mg tablet TAKE 1 TABLET(20 MG) BY MOUTH EVERY NIGHT 90 tablet 3 06/27/19 25 Active donepeziL (ARICEPT) 10 mg tabletIndicatio ns:Mild late onset Alzheimer's dementia without behavioral disturbance, psychotic disturbance, mood disturbance, or anxiety Take 1 tablet (10 mg total) by mouth nightly 90 tablet 3 09/06/19 25 Active cholestyramine (QUESTRAN) 4 gram powder MIX 4 GRAMS OF POWDER DIRECTED AND DRINK TWICE DAILY WITH MEALS DIRECTED 378 g 1 09/19/19 25 Active diphenoxylate-a tropine (LOMOTIL) 2.5-0.025 mg per tablet 10/27/19 25 Active sacubitriL-vals anu (ENTRESTO) 24-26 mg tabletIndicatio ns:chronic heart failure Take 1 tablet by mouth 2 (two) times a day 60 tablet 5 11/20/19 25 026 Active sacubitriL-vals anu (ENTRESTO) 24-26 mg tabletIndicatio ns:chronic heart failure Take 1 tablet by mouth 2 (two) times a day 60 tablet 5 08/29/19 25 025 Discontinued(Re order) nitrofurantoin monohydrate (MACROBID) 100 mg capsule Take 1 capsule (100 mg total) by mouth 2 (two) times a day 10 capsule 11/16/19 25 025 Discontinued cefadroxil (DURICEF) 500 mg capsule Take 1 capsule (500 mg total) by mouth 2 (two) times a day for 5 days 10 capsule 11/19/19 25 025 Active Problems Problem Noted Date Diagnosed Date Diarrhea 10/31/2024 Assessment & Plan (10/31/2024 11:16 AM CDT): Supportive care. Reievwed use of medications and brat diet to advance. Reivewed hydration import and will follow response. Asymptomatic menopausal state 10/31/2024 Encounter for Medicare annual wellness exam 09/04 Assessment & Plan (09/23/2024 11:30 AM CDT): Visit preventive in nature. We reviewed medications, chronic conditions, risk factors, lifestyle recommendations. Reviewed immunization recommendations. Follow-up in 6 months for chronic conditions and 1 year for annual wellness. Enuresis 09/12/2024 Assessment & Plan (09/12/2024 1:06 PM CDT): Urgency at night. Has taken OAB meds in the past but could not tolerate. Will check UA/cx and paln accordingly. Mild episode of recurrent major depressive disor sachi 09/12/2024 Assessment & Plan (09/12/2024 1:11 PM CDT): Stable on prozac. Will continue. Acute cystitis without hematuria 09/12/2024 Assessment & Plan (09/12/2024 1:18 PM CDT): UA dipstick completed. Abx sent. Aware to complete full course of abx. Reviewed abx Ses/scheduling. Push fluids. UA sent for culture. Will call once results rec'd. Red flags reviewed. Alzheimer's disease, unspecified 09/05/2024 Assessment & Plan (09/12/2024 1:03 PM CDT): Following with Neurology. Valvular heart disease 08/08/2024 Overview (09/20/2024): Mild MR/TR on echo 30 January 2023. LVEF of 60%. Mild TR/trivial MR on echo 17 September 2024. LVEF of 63%. Assessment & Plan (08/08/2024 2:03 PM CDT): Denies any chest pain or shortness of breath while walking slowly with a cane. Apparently has not been taking her Coreg and losartan because i t made my heart rate go faster . I advised her that those 2 medications are not likely the reason why her heart rate went faster. Another echocardiogram will be done now. If the LV function has diminished again, she will need to go back on a beta- fiorella and a vaso dilator. In the meantime, stay on empagliflozin. Chronic diffuse alopecia 07/28/2024 Assessment & Plan (07/28/2024 6:54 AM CDT): Nonscarring androngenic alopeica and will establish with dermatology and montior erspnose. Tremor 07/28/2024 Assessment & Plan (07/28/2024 6:54 AM CDT): Continue to follow tremor and will montior response. No pill-rolling, no festinating gait. Nausea and vomiting, unspecified vomiting type 0 07/05/2024 Chronic systolic congestive heart failure 2024 Overview (09/20/2024): Severe LV systolic dysfunction with LVEF of 28% on echo 25 January 2013. Normal LVEF of 65 70% on echo 09 Jul 2018. Normal LVEF of more than 70% on echo 29 September 2022. Normal LVEF of 60% on echo 30 January 2023. Normal LVEF of 63% on echo 17 September 2024. Assessment & Plan (10/31/2024 11:16 AM CDT): Pt continues on entresto. No increased work of breathing. No palpitations. No Increased edema. No orthopnea. She is noting increased fatigue. Assessment & Plan (09/12/2024 1:09 PM CDT): Clinically compensated. Continue entresto. Will continue to monitor. Follows closely with cardiology. Assessment & Plan (06/20/2024 3:25 PM CDT): No signs of fluid overload. Reports SOB but no CP. Would like to change nutritionist public health. Will place a new referral. Insect bite of right ear 11/09/2023 Assessment & Plan (11/09/2023 1:03 PM CDT): Local skin reactions to insect bite. TMC ointment ordered and advised PRN Tylenol for pain and swelling. Hypotension 01/31/2023 Hypertension, essential 12/22/2022 Assessment & Plan (12/22/2022 3:10 PM CDT): Blood pressure is well controlled today. Patient feels symptoms are associated with her carvedilol she is currently held her carvedilol last night and this morning. We discussed continue holding for the next few days see if symptoms have improved. Can reduce dosage of carvedilol to 3.125 mg b.i.d.. Encouraged patient to follow-up with Cardiology, reviewed recent cardiac testing including echocardiogram and event monitor. Event monitor showing less than 1% burden of atrial fibrillation. Dizziness 10/17/2022 Assessment & Plan (12/22/2022 3:07 PM CDT): Suspect dizziness related to dehydration and hypoglycemia as patient reports she avoids eating at times to avoid diarrhea. Stressed the need to eat small meals frequently throughout the day and push fluids. Will check labs today Patient is following with GI for management of her IBS. She does note improvement in diarrhea after starting a fiber supplement. SOB (shortness of breath) 08/31/2022 Assessment & Plan (06/20/2024 3:25 PM CDT): Will start on Abluterol inhaler and monitor response. Advised to RTC if no improvement. Orders: albuterol HFA (PROVENTIL HFA,VENTOLIN HFA,PROAIR HFA) 90 mcg/actuation inhaler; Inhale 2 puffs every 6 (six) hours as needed for wheezing Easy bruising 06/25/2021 Assessment & Plan (06/25/2021 2:38 PM CDT): Discussed need to protect upper extremities, patient currently using furniture around her home to help with ambulation. She denies any signs symptoms of bleeding bruising anywhere other than her bilateral forearms. She denies any blood in her stools. Will check labs today and notify patient of results as they are received. BMI 21.0-21.9, adult 03/25/2021 Assessment & Plan (06/20/2024 3:25 PM CDT): Weight appropriate for patient. Assessment & Plan (06/25/2021 2:35 PM CDT): Discussed healthy diet and importance of regular physical activity. Assessment & Plan (03/25/2021 2:10 PM SHOE FOLDER): Discussed healthy diet and importance of regular physical activity. Discussed Boost/protein drinks to help increase protein level (CMP showing protein=5.7). Ileus 03/16/2021 Assessment & Plan (03/26/2021 8:02 AM SHOE FOLDER): Reviewed notes from [facility] from February & March admission w/Mrs Collins as well as imaging results. No further complications at this time. No further n/v. Some loose stools remain (low fiber diet). Has not yet made f/u appt w/Dr Lopez. Referral entered. She has his contact info she states but # put on AVS for her to take w/her. SBO (small bowel obstruction) 03/02/2021 Assessment & Plan (07/28/2024 6:54 AM CDT): Resolution with short courese of bowel rest. No evidence of recurence. Established with gi at the present time. Assessment & Plan (03/02/2021 6:14 PM SHOE FOLDER): Presented with abdominal pain, distension, nausea and vomiting. WBC 16.6, CT abdomen pelvis reported a small bowel obstruction. Surgery was consulted, NG tube was placed. Once on the floor patient had a large emesis, and also had diarrhea this morning, but no flatus. Seen by surgery, advised to continue NG tube decompression. Plans for abdominal x-ray tomorrow morning. Monitor NG output, monitor for flatus. Monitor BMP. Fall 03/02/2021 Assessment & Plan (06/25/2021 2:37 PM CDT): Mechanical fall 1 week ago at home, Injuring left face. No loss of consciousness. Denies any pain, headaches or confusion. Reviewed fall precautions with patient. Will discuss with office status of motorized scooter for patient. Assessment & Plan (03/02/2021 6:22 PM SHOE FOLDER): Pt had a fall at home a few days ago after she tripped on a rug, falling on her face. Did not lose consciousness. CT head and CT C-spine were negative for any acute findings. Continue fall precautions, physical therapy to be ordered once patient's small bowel obstruction is resolved. 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 Replacement with [employer] Momentum FISHER SPEAR-D on 15 April 2022 (RL). Normal LVEF of 60% on echo 30 January 2023. Assessment & Plan (08/08/2024 2:01 PM CDT): Discussed today's ICD rep check showing great numbers. Left upper chest site looks fine. No atrial fibrillation noted although she feels palpitations at times. Exam in the office today revealed an occasional premature beat. Assessment & Plan (04/22/2022 12:46 PM SHOE FOLDER): No problems since ICD replacement. No pain or fever or wound drainage. We discussed the patient needs to follow-up with Dr. Maurice in 1 month. Bilateral primary osteoarthritis of knee 019 Assessment & Plan (12/22/2020 2:32 PM CDT): Has discussed joint aspiration and steroid injection with ortho, patient declines. Reports pain has been stable. Does not wish to have any intervention at this time. Advised RICE as needed. Will continue to monitor. TIA (transient ischemic attack) 04/24/2018 Visual changes 03/28/2018 Assessment & Plan (03/28/2018 1:48 PM SHOE FOLDER): Clinically resolved. H/O TIA (transient ischemic attack) and stroke 0 03/28/2018 Assessment & Plan (03/28/2018 1:50 PM SHOE FOLDER): Currently Asx. Referred to neurology for further eval/mgmt. Encouraged patient to go to the nearest ER if she feels she may be having a TIA and/or Stroke. Emphasized how important timing was in the treatment of an acute brain infarct. H/O fracture of femur 2018 Irritable bowel syndrome with diarrhea 8 Assessment & Plan (12/22/2022 3:08 PM CDT): Continue fiber supplement. Discussed low FODMAP diet, avoiding raw vegetables etc.. Assessment & Plan (08/11/2022 12:07 PM CDT): Denies symptoms at this time. Discussed importance of hydration during episodes of diarrhea. Assessment & Plan (06/25/2021 2:36 PM CDT): Continues to use Lomotil as needed. Is no longer taking dicyclomine. Discussed extensively with patient's dietary intake and importance of keeping a food diary. She denies any abdominal pain, fevers, nausea or vomiting. Will follow-up with gastroenterology office in 3 months. Assessment & Plan (01/07/2021 4:48 PM CDT): Start dicyclomine 10 mg 3 times daily before meals. Use Lomotil up to 3 times daily as needed. Follow-up in the office if no improvement in her symptoms. Assessment & Plan (12/09/2019 2:17 PM CDT): Doing well using 2 lomotil tablets prn diarrhea. No side effects. Script was printed and given to patient. She is to f/u in about 6 months or sooner if issues arise. Assessment & Plan (10/30/2018 3:15 PM CDT): Continue dicyclomine BID prior to meals and lomotil only prn diarrhea. Pt was given refills on the dicyclomine. Assessment & Plan (09/27/2018 12:42 PM CDT): Patient is still symptomatic. Will start dicyclomine 10 milligram twice daily before meals. Continue Lomotil as needed once or twice daily. Follow-up in 6 weeks for further evaluation. Assessment & Plan (01/01/2018 3:38 PM CDT): Improved with Probiotics. Diverticulosis of large intestine without hemorr tamir 01/01/2018 Assessment & Plan (09/27/2018 12:43 PM CDT): Patient is asymptomatic from this aspect of this time so notes no specific intervention or therapy is needed Encounter for osteoporosis s creening in asymptomatic postmenopausal patient 12/18/2017 Encounter for adjustment and management of unspecified implanted device 10/25/2017 Vaginal intraepithelial neoplasia grade 2 2016 Overview (01/18/2017): Moderate dysplasia of the vaginal cuff. Hemangioma of skin 08/26/2016 Sick sinus syndrome 11/17/2014 Overview (06/10/2016): Sick sinus syndrome Assessment & Plan (09/12/2024 1:04 PM CDT): Pacemaker. Following closely with Cardiology. Assessment & Plan (07/28/2024 6:53 AM CDT): Pacemaker in place and will continue to interrogate with no abnormalities noted. Essential hypertension 06/06/2014 Overview (06/10/2016): Hypertension Assessment & Plan (09/12/2024 1:19 PM CDT): Normotensive. No changes. Will continue to monitor. Assessment & Plan (06/20/2024 3:25 PM CDT): Blood pressure stable and well controlled. Will continue to hold Losartan and restart Coreg 3.125 mg to control heart rate. Will monitor. Assessment & Plan (08/11/2022 12:05 PM CDT): Patient dizziness and reports of feeling lightheaded are associated with low home BP readings. Will decrease losartan from 50 mg daily to 25 mg daily and monitor response. Machelle continues checking BP at home daily, will notify our office and her nutritionist public health if readings are consistently >130 systolic. Instructed patient to schedule follow up apt with her nutritionist public health. Encouraged adequate hydration. Reviewed s/s warranting immediate evaluation. Assessment & Plan (06/25/2021 2:35 PM CDT): Blood pressure well controlled on current medication regimen. Patient is followed by Cardiology. Assessment & Plan (03/02/2021 6:21 PM SHOE FOLDER): Home meds Coreg and losartan currently on hold as patient is NPO due to SBO. Substituted with metoprolol IV at this time. Continue to monitor blood pressures. Assessment & Plan (12/22/2020 1:44 PM CDT): Patients carvedilol was decreased from 12.5 to 6.5 BID after experiencing dizziness. BP increased today, patient states she is feeling great and denies problems with dizziness. She has not checked her BP in the past several days. Instructed to continue monitoring BP at home and notify cardiology office of elevated readings. Reviewed red flags. Assessment & Plan (12/17/2018 3:00 PM CDT): Waxing and waning, controlled. Managed by cardiology. Cont current meds. Assessment & Plan (2018 1:22 PM SHOE FOLDER): Hypertension is improving with treatment. Continue current treatment regimen. Dietary sodium restriction. Continue current medications. Ambulatory blood pressure monitoring. Blood pressure will be reassessed at the next regular appointment. Amlodipine 5 mg qhs, Coreg 12.5 mg bid, Losartan 50 mg bid Assessment & Plan (01/01/2018 5:20 PM CDT): Hypertension is waxing and waning. Continue current treatment regimen. Dietary sodium restriction. Continue current medications. Managed by Cardiology. Carvedilol 25 mg 1/2 tab bid; losartan 100mg 1/2 tab bid; amlodipine 5mg qd Hypercholesterolemia 06/06/2014 Overview (06/10/2016): High cholesterol Assessment & Plan (03/26/2021 8:00 AM SHOE FOLDER): Lab Results Component Value Date CHOL 113 05/07/2020 CHOL 128 2018 CHOL 123 (L) 05/31/2016 HDL 37 (L) 05/07/2020 HDL 30 (L) 2018 HDL 33 (L) 05/31/2016 LDL 71 05/31/2016 LDL 73 05/19/2015 TRIG 118 05/07/2020 TRIG 128 2018 TRIG 95 05/31/2016 Simvastatin 20mg nightly. Denies med SE. We will check labs and make adjustments to medications as needed. Patient should focus on limiting bad fats in the diet and using exercise as a way to improve the lipid status. Secondary prevention. Reviewed medications. Lipid panel ordered; will call w/results when rec'd. Denies any statin Ses. Reviewed diet/exercise recommendations. Reviewed red flags. Assessment & Plan (03/02/2021 6:18 PM SHOE FOLDER): Home Zocor switched to Lipitor while admitted. Assessment & Plan (12/17/2018 3:02 PM CDT): Stable. Cont. Current meds. Managed by cardiology. Assessment & Plan (03/28/2018 1:49 PM SHOE FOLDER): Encouraged compliance with current medication and dosage. Simvastatin 20 mg qhs. Assessment & Plan (2018 1:23 PM SHOE FOLDER): Lipid abnormalities are improving with treatment. Nutritional counseling was provided. and Pharmacotherapy as ordered. Lipids will be reassessed 4 months. Simvastatin 20 mg qd Assessment & Plan (01/01/2018 5:19 PM CDT): Lipid abnormalities are unchanged. Nutritional counseling was provided. and managed by Cardiology Simvastatin 20 mg qd History of endometrial cancer 03/04/2013 Overview (06/09/2016): Endometrial cancer Leukocytosis 01/27/2013 Anemia 12/26/2012 Overview (06/09/2016): Anemia Assessment & Plan (12/22/2022 3:10 PM CDT): Will check labs, patient continues iron supplement, 65 mg per day. Assessment & Plan (01/07/2021 4:50 PM CDT): This is chronic normocytic anemia likely secondary to chronic disease. No sign of GI bleeding. Thyroid nodule 12/10/2012 Overview (06/08/2016): Thyroid nodule Resolved Problems Problem Noted Date Diagnosed Date Resolved Date Cholecystitis 01/25/2024 02/09/2024 Abscess of right external ear 11/09/2023 11/09/2023 Urinary tract infection 01/31/2023 1110/2022 Bronchitis 01/31/2023 01/31/2023 Upper respiratory infection 03/01/2021 03/26/2021 Need for immunization against influenza 12/22/2020 03/26/2021 BMI 25.0-25.9,adult 12/09/2019 03/25/19 Assessment & Plan (12/22/2020 1:46 PM CDT): Discussed healthy diet and importance of regular physical activity. Acute bronchitis 07/02/2018 03/25/2021 Assessment & Plan (03/02/2021 6:20 PM SHOE FOLDER): Pt notes that she has been coughing for the past 3 weeks with yellowish productive sputum, and was prescribed a Z pack at an urgent care for bronchitis, with no improvement. WBC 16.6 on arrival. CXR negative for infiltrates. Tested negative for Influenza A/B, RSV and COVID 19. Cefepime started in ED was switched to Rocephin. Started on albuterol nebs, and Tessalon pearls can be started once the patient was started on a diet. Assessment & Plan (07/02/2018 2:48 PM CDT): Rx given, increase water intake. Rest. Go to nearest ER if S/Sxs worsen. Wheezing 07/02/2018 07/23/2018 Assessment & Plan (07/02/2018 2:48 PM CDT): Office neb Tx given. Patient reports improvement after treatment was completed. Acute traumatic pain 01/06/2018 019 Closed fracture of shaft of left femur 01/05/2018 2018 Overview (01/06/2018): Added automatically from request for surgery [id number] Keratosis, senilis 08/26/2016 9 Skin benign neoplasm 08/26/2016 019 Gastroesophageal reflux disease 06/06/2014 12/17/2018 Overview (06/10/2016): GERD Assessment & Plan (12/17/2018 3:02 PM CDT): Resolved. Assessment & Plan (10/30/2018 3:16 PM CDT): Pt has very occasional heartburn. She takes TUMS prn which helps relieve this. She may continue to do this. Assessment & Plan (09/27/2018 12:43 PM CDT): She may use any [id number] anti acid such as ranitidine or Pepcid as needed. Assessment & Plan (01/01/2018 3:47 PM CDT): Mild, takes antacids if needed. Adenocarcinoma 06/06/2014 08/14/2023 Overview (06/10/2016): Adenocarcinoma Acute blood loss anemia 01/27/201312/04 Generalized anxiety disorder 11/01/2010 2018 Overview (06/10/2016): Anxiety Encounters Date Type Department Care Team Description 11/16/2024 Results Follow-Up [facility] Emergency Department [address] [place] [address] Yovany Canchola PA Urine culture Urine 11/15/2024 5:19 AM CDT - 11/15/2024 10:35 AM CDT Emergency [facility] Emergency Department [address] [place] [address] Jasson Murcia MD Dehydration (Primary Dx); Diarrhea, unspecified type; Acute cystitis without hematuria Discharge Disposition: Discharge to home or self care 11/15/2024 5:03 AM CDT - 11/15/2024 11:59 PM CDT Hospital Encounter [facility] Emergency, Room R Discharge Disposition: Discharge to home or self care 10/30/2024 8:45 AM CDT Office Visit [facility] [address] [phone] Miki Johnson MD Sick sinus syndrome (HCC) (Primary Dx); Asymptomatic menopausal state; Chronic systolic congestive heart failure (HCC); Diarrhea, unspecified type 10/29/2024 Telephone [facility] [address] [phone] Miki Johnson MD Appointment Request 10/28/2024 Orders Only [facility] [address] [id number] Miki Johnson MD 10/28/2024 Telephone [facility] [address] [phone] Miki Johnson MD Diarrhea 10/28/2024 [facility] [address] [address] Anne-Marie Graves RN 10/28/2024 [facility] [address] [address] Andree Calloway MA 10/25/2024 [facility] [address] [address] Andree Calloway MA 10/24/2024 8:46 PM CDT - 10/24/2024 11:55 PM CDT Emergency [facility] Emergency Department [address] [place] [id number] Jose Pierson MD Fall, initial encounter (Primary Dx); Closed head injury, initial encounter; Contusion of left knee, initial encounter Discharge Disposition: Discharge to home or self care 10/24/2024 8:26 PM CDT - 10/24/2024 11:59 PM CDT Hospital Encounter [facility] Emergency, Room R Discharge Disposition: Discharge to home or self care 10/24/2024 [facility] [address] [address] Conchita Yun MA 10/24/2024 Results Follow-Up [facility] Emergency Department [address] [place] [id number] Jasson Murcia MD Urine culture Urine 10/22/2024 Orders Only [facility] [address] [phone] Miki Johnson MD 10/22/2024 Telephone [facility] [address] [place] [address] Miki Johnson MD Med Refill 10/21/2024 12:13 PM CDT - 10/21/2024 4:13 PM CDT Emergency [facility] Emergency Department [address] [place] [id number] Jose Pierson MD Diarrhea, unspecified type (Primary Dx); Dehydration; Acute cystitis without hematuria Discharge Disposition: Discharge to home or self care 10/17/2024 8:00 AM CDT Ancillary Procedure [place] [address] [facility] [address] [place] [address] Cardiomyopathy, idiopathic; Systolic congestive heart failure, unspecified HF chronicity (HCC); Biventricular automatic implantable cardioverter defibrillator in situ 10/09/2024 Telephone [facility] [address] [phone] Miki Johnson MD Medical Question/Miscellaneous 09/23/2024 Results [facility]-Up [facility] [address] [phone] Starla Trejo NP Urinalysis reflex to microscopic and culture Urine, clean voided, Urinalysis, microscopic only, Urine culture Urine, clean voided 09/20/2024 Results Follow-Up [place] [facility] [address] [facility] [address] [place] [id number] Trever Mitchell MD Transthoracic Echo (TTE) Complete W Doppler/CF 09/17/2024 12:42 PM CDT - 09/17/2024 11:59 PM CDT Hospital Encounter [facility] [address] [place] [address] Valvular heart disease; Cardiomyopathy, idiopathic (CMS/HCC) (HCC) Discharge Disposition: Discharge to home or self care 09/12/2024 12:58 PM CDT - 09/12/2024 11:59 PM CDT Hospital Encounter [facility] [id number] [place] [id number] Enuresis Discharge Disposition: Discharge to home or self care 09/12/2024 12:30 PM CDT Office Visit [facility] [address] [phone] Starla Trejo NP Encounter for Medicare annual wellness exam (Primary Dx); Essential hypertension; Lipid screening; Enuresis; Sick sinus syndrome (HCC); Chronic systolic congestive heart failure (HCC); Alzheimer's disease, unspecified (HCC); Mild episode of recurrent major depressive disorder; Acute cystitis without hematuria; Impaired fasting glucose 09/12/2024 Results Follow-Up [facility] [address] [place] [address] Kane Jara MD Cryptosporidium and Giardia antigen assay Stool, Stool culture Stool Rectum, Pap and HPV, reflex to HPV Genotypes 09/09/2024 1:00 PM CDT - 09/09/2024 11:59 PM CDT Hospital Encounter [address] Diarrhea, unspecified type Discharge Disposition: Discharge to home or self care 09/09/2024 10:30 AM CDT Lab [address] [address] Mild late onset Alzheimer's dementia without behavioral disturbance, psychotic disturbance, mood disturbance, or anxiety (HCC) 09/09/2024 9:45 AM CDT - 09/09/2024 11:59 PM CDT Hospital Encounter [facility] [address] [place] [address] Screening mammogram, encounter for Discharge Disposition: Discharge to home or self care 09/09/2024 9:00 AM CDT [facility] [address], [place] [address] Kane Jara MD Well woman exam (Primary Dx); Surveillance Pap following abnormal vaginal Pap; Diarrhea, unspecified type; Vaginal high risk HPV DNA test positive 09/09/2024 Results [facility] [address] [phone] Miki Johnson MD Screening Mammogram Bilateral W Praneeth 09/05/2024 11:15 AM CDT Office Visit [facility] [address] [place] [address] [address] [place] [phone] Johnny Marti MD Tremor; Mild late onset Alzheimer's dementia without behavioral disturbance, psychotic disturbance, mood disturbance, or anxiety (HCC) from Last 3 Months Immunizations Immunization Administration Dates Next Due H1N1 All Forms 10/18/2015 Influenza, Quadrivalent, Hig h Dose, Preservative Free, Intrr 11/22/2022,11/24/2021,12/22/2020,11/20 Influenza, Trivalent, Adjuva nted, Intramuscular 10/17/2018 Influenza, Trivalent, High D ose, Split, Preservative Free, Intramuscular 10/30/2016,10/19/2015,12/10/2012 Influenza, Trivalent, IM (MDV) 12/04/2012 Influenza, Trivalent, Preser vative Free, Intramuscular 10/22/2014 Influenza, Unspecified 11/09/2023,2023(Deferred: Patient Refused),11/04/2022(Deferred: Patient Refused),12/04/2021,12/03/2017, 018 Pfizer SARS-CoV-2 Monovalent Vaccination (12+ Yrs) PURPLE 11/30/2020,06/16/2020,05/19/2020 Pneumococcal Conjugate PCV 13 12/03/2017, 018 Pneumococcal Conjugate, Unspecified 01/26/2011 Pneumococcal Polysaccharide PPV23 08/08/2012,07/2012,03/06/2006 RSV Vaccine, Pref, Recombina nt, Subunit, Adjuvanted, PF, IM (Arexvy) 11/22/2022 Sars-cov-2 Covid-19 Mrna, Bi valent, Original/omicron Ba.1, A 11/22/2022 Td, adsorbed 04/27/2009 Tdap 12/03/2017,12/03/2017 ZOSTER LIVE 08/15/2012,08/15/2012 ZOSTER Recombinant 04/03/2023,01/23/2023 Surgical History Surgery Date Site/Laterality Comments TONSILLECTOMY HIP ARTHROPLASTY Left TOTAL ABDOMINAL HYSTERECTOMY CATARACT EXTRACTION PORTACATH PLACEMENT CARDIAC PACEMAKER PLACEMENT Pacemaker and Defibillatory [employer] DILATION AND CURETTAGE OF UTERUS ANAL FISSURECTOMY MYOMECTOMY 03/06/1977 - 03/05/1978 BREAST CYST EXCISION 03/06/1971 - 03/05/1972 Left OOPHORECTOMY LAPAROSCOPIC CHOLECYSTECTOMY 01/26/2024 Medical History Medical History Date Comments Tonsillitis Hypertension History of radiation therapy History of chemotherapy Hyperlipidemia Osteoporosis IBS (irritable bowel syndrome) GERD (gastroesophageal reflux disease) Anal fissure Diverticulosis Osteoarthritis Breast cyst, right CHF (congestive heart failure) ([facility]) 2013 Endometrial cancer 2013 Abnormal Pap smear of cervix TIA (transient ischemic attack) Bronchitis 01/31/2023 Nausea and vomiting, unspecified vomiting type Family History * Patient is adopted Relation Name Status Comments Father Other Mother Other Social History Tobacco Use Types Packs/Day Years Used Date Smoking Tobacco: Former Cigarettes 1.5 11 1 971 - 1982 Smokeless Tobacco: Never Tobacco Cessation:Counseling Given: Not Answered Alcohol Use Standard Drinks/Week Comments No 0 [...] relatives? Three times a week 03/22/2021 Attends [employer] Not on file 03/22 Do you belong to any clubs o r organizations such as taoism groups, unions, fraternal or athletic groups, or [...] points, staff should administer the PHQ-9) 0 09/12/2024 PRAPARE - Transportation Answer Date Re corded [...] place to sleep or slept in a [place] health care facility (including now)? No 03/22/2021 Personal Safety Answer Date Recorded Have you ever been in or are you currently in a harmful physical or emotional relationship or is someone making you feel afraid or unsafe? 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 Gender Identity Not on file Sexual Orientation Not on file Obstetrics History Para Term AB IAB SAB Ectopic Multiple Livin g Live Births 3 3 3 2 3 Date Outcome GA Total Labor Labor/2nd/3rd Weight Sex Type Anes PTL Saadia A1 A5 Name Clin Term Vag-Spo nt Term Vag-Spo nt Term Vag-Spo nt Last Filed Vital Signs Vital Sign Reading Time Taken Comments Blood Pressure 123/50 11/15/2024 8:30 AM CDT Pulse 68 11/15/2024 8:30 AM CDT Temperature 37.2 C (98.9 F) 11/15/2024 5:50 AM CDT Respiratory Rate 12 11/15/2024 8:30 AM CDT Oxygen Saturation 99% 11/15/2024 8:30 AM CDT Inhaled Oxygen Concentration - - Weight 50.3 kg (111 lb) 11/15/2024 5:53 AM CDT Height 160 cm (5' 3) 10/30/2024 8:54 AM CDT Body Mass Index 19.66 10/30/2024 8:54 AM CDT Plan of Treatment Health Maintenance Due Date Last Done Comments Hepatitis B Screening 1953 Osteoporosis Screening-Bone Density Scan 04/27/2023 04/27/2021, 05/28/2018, 05/27/2016 Covid-19 Vaccine (8 - 2025-2 6 season) 2024 11/22/2022, 11/22/2022, 08/16/2022, Additional history exists Influenza Vaccine (#1) 2024 , 11/22/2022, 12/04/2021, Additional history exists Depression Screening 09/12/2025 09/12/2024, 09/09/2024, 06/20/2024, Additional history exists Fall Risk Assessment 09/12/2025 09/12/2024, 07/06/2024, 06/20/2024, Additional history exists Well Visit 65+ 09/12/2025 09/12/2024, 0709/2024, 08/14/2023, Additional history exists DTaP/Tdap/Td Vaccine (3 - Td or Tdap) 12/04/2027 12/03/2017, 12/03/2017, 04/27/2009 Pneumococcal vaccine 65+ Completed 018, 12/03/2017, 08/08/2012, Additional history exists Zoster Vaccine Completed 04/03/2023, 01/05, 08/15/2012, Additional history exists Medical Devices Implanted Type Area Manager Respiratory Care Device Identifier Shelf Expiration Date Model / Serial / Lot [employer] C.R.M. [facility] Heartlogic Enduralife Smartcrt 5.37x8.08cm Is-1 Df-1 G125 - [id number] - [id number] Implanted:Qty: 1 on 04/15/2022 by Trever Mitchell MD at [facility] ICD [employer] C.R.M. 10/21/2023 [id number] / [id number] / Description:[facility] T-D: BiV ICD RA-IS-1; RV-DF4-LL; LV-IS-1 Medtronic Inc Tyrx Absorbable Antibacterial Envelope-Large 3.3x2.9in [id number] - [id number] Implanted:Qty: 1 on 04/15/2022 by Trever Mitchell MD at [facility] Mesh Med[employer]onic Inc 12/19/2022 [id number] / / [id number] Pacemaker Pacemaker Left: Subclavian [employer]hew/Richco/O rtho [id number] Nisha-Loc 4.5mm 7.9mm 76mm 3 Lead Self Tap Self Retaining Lock - [id number] Implanted:Qty: 4 on 01/07/2018 by Maya Grant MD at [facility] Left: Femur [employer]/ Ortho [id number] / / [employer]Rich[employer]/O rtho [id number] 4.5mm 7.9mm 26mm Self Tap Lock Self Retain T25 Screw Bone - [id number] Implanted:Qty: 1 on 01/07/2018 by Maya Grant MD at [facility] Left: Femur [employer]/ Ortho [id number] / / [employer]Rich[employer]/O rtho [id number] Accord 2mm 75mm Clamp Trochanter Cable Orthopedic Cocr - [id number] Implanted:Qty: 1 on 01/07/2018 by Maya Grant MD at [facility] Left: Femur [employer]/ Ortho [id number] / / [employer]Rich[employer]/O rtho [id number] Insha-Loc 342mm 16 Hole Lock Femur Right Distal Plate Bone - [id number] Implanted:Qty: 1 on 01/07/2018 by Maya Grant MD at [facility] Left: Femur [employer]/ Ortho [id number] / / [employer]/O rtho [id number] Nisha-Loc 4.5mm 8mm 80mm Self Tap Self Retaining Long Bone Small - [id number] Implanted:Qty: 1 on 01/07/2018 by Maya Grant MD at [facility] Left: Femur [employer]/ Ortho [id number] / / [employer]/O rtho [id number] Nisha-Loc 4.5mm 8mm 30mm Self Tap Self Retaining Long Bone Small - [id number] Implanted:Qty: 1 on 01/07/2018 by Maya Grant MD at [facility] Left: Femur [employer]/ Ortho [id number] / / [employer]/O rtho [id number] Nisha-Loc 4.5mm 8mm 32mm Self Tap Self Retaining Long Bone Small - [id number] Implanted:Qty: 1 on 01/07/2018 by Maya Grant MD at [facility] Left: Femur [employer]/ Ortho [id number] / / [employer]Rich[employer]/O rtho [id number] 4.5mm 8mm 38mm Self Tap Cortex T25 Screw Bone Stainless Steel - [id number] Implanted:Qty: 1 on 01/07/2018 by Maya Grant MD at [facility] Left: Femur [employer]/ Ortho [id number] / / [employer]Rich[employer]/O rtho [id number] 4.5mm 8mm 38mm Self Tap Cortex T25 Screw Bone Stainless Steel - [id number] Implanted:Qty: 1 on 01/07/2018 by Maya Grant MD at [facility] Left: Femur [employer]/ Ortho [id number] / / [employer]/O rtho [id number] Nisha-Loc 4.5mm 7.9mm 76mm 3 Lead Self Tap Self Retaining Lock - [id number] Implanted:Qty: 1 on 01/07/2018 by Maya Grant MD at [facility] Left: Femur [employer]/ Ortho [id number] / / Explanted Type Area Manager Respiratory Care Device Identifier Shelf Expiration Date Model / Serial / Lot [employer] [id number] Powerport Mri Airguard 8fr 1 Lumen Attachable Catheter Latex Free - [id number] Explanted:Qty: 1 on 03/14/2019 by Vito Pang MD at [facility] Right: Chest [employer] [id number] / / Procedures Procedure Name Priority Date/Time Associated Diagnosis Comments TROPONIN T HIGH-SENSITIVITY 2-HOUR Timed 11/15/2024 7:47 AM CDT URINALYSIS, MICROSCOPIC ONLY STAT 11/15/2024 7:19 AM CDT URINE CULTURE STAT 11/15/2024 7:19 AM CDT URINALYSIS AND REFLEX TO MICROSCOPIC AND CULTURE STAT 11/15/2024 7:[address] ABDOMEN PELVIS W CONTRAST ED 11/15/2024 6:58 AM CDT EGFR STAT 11/15/2024 5:41 AM CDT MAGNESIUM Add-On 11/15/2024 5:41 AM CDT DIFFERENTIAL AUTO STAT 11/15/2024 5:4 1 AM CDT TROPONIN T HIGH-SENSITIVITY SERIES (BASELINE, 2HR, 4HR, 6HR) STAT 11/15/2024 5:41 AM CDT COMPREHENSIVE METABOLIC PANEL STAT 11/15/2024 5:41 AM CDT CBC WITH AUTO DIFFERENTIAL STAT 11/15/2024 5:41 AM CDT ECG 12-LEAD STAT 11/15/2024 5:[address] HEAD WO CONTRAST ED 10/24/2024 9 :34 PM CDT XR KNEE LEFT 1 OR 2 VIEWS ED 10/24/2024 9:16 PM CDT XR HIP LEFT W PELVIS 2 OR 3 VIEWS ED 10/24/2024 9:16 PM CDT URINALYSIS, MICROSCOPIC ONLY STAT 10/21/2024 2:45 PM CDT URINE CULTURE STAT 10/21/2024 2:45 PM CDT URINALYSIS AND REFLEX TO MICROSCOPIC AND CULTURE STAT 10/21/2024 2:45 PM CDT EGFR STAT 10/21/2024 12:30 PM CDT DIFFERENTIAL AUTO STAT 10/21/2024 12:30 PM CDT SEPSIS LACTATE WITH REFLEX STAT 10/21/2024 12:30 PM CDT PRO B-TYPE NATRIURETIC PEPTIDE STAT 10/21/2024 12:30 PM CDT CBC WITH AUTO DIFFERENTIAL STAT 10/21/2024 12:30 PM CDT COMPREHENSIVE METABOLIC PANEL STAT 10/21/2024 12:30 PM CDT DEVICE CHECK - REMOTE Routine 10/17/2024 8:12 AM CDT Cardiomyopathy, idiopathic Systolic congestive heart failure, unspecified HF chronicity (HCC) Biventricular automatic implantable cardioverter defibrillator in situ TRANSTHORACIC ECHO (TTE) COMPLETE W DOPPLER/CF WO CONTRAST Routine 09/17/2024 1:38 PM CDT Valvular heart disease Cardiomyopathy, idiopathic (CMS/HCC) (HCC) POCT HEMOGLOBIN A1C Routine 09/12/2024 1 :00 PM CDT Impaired fasting glucose POCT LIPID PANEL Routine 09/12/2024 1:00 PM CDT Lipid screening POCT URINALYSIS DIPSTICK Routine 09/12/2024 1:00 PM CDT Enuresis URINALYSIS, MICROSCOPIC ONLY Routine 09/12/2024 12:58 PM CDT Enuresis URINE CULTURE Routine 09/12/2024 12:58 PM CDT URINALYSIS AND REFLEX TO MICROSCOPIC AND CULTURE Routine 09/12/2024 12:58 PM CDT Enuresis STOOL CULTURE Routine 09/09/2024 11:55 AM CDT Diarrhea, unspecified type CRYPTOSPORIDIUM AND GIARDIA ANTIGEN ASSAY Routine 09/09/2024 11:55 AM CDT Diarrhea, unspecified type T4, FREE Routine 09/09/2024 10:45 AM CDT Mild late onset Alzheimer's dementia without behavioral disturbance, psychotic disturbance, mood disturbance, or anxiety (HCC) THYROID FUNCTION CASCADE Routine 09/09/2024 10:45 AM CDT Mild late onset Alzheimer's dementia without behavioral disturbance, psychotic disturbance, mood disturbance, or anxiety (HCC) FOLATE Routine 09/09/2024 10:45 AM CDT Mild late onset Alzheimer's dementia without behavioral disturbance, psychotic disturbance, mood disturbance, or anxiety (HCC) VITAMIN B6 Routine 09/09/2024 10:45 AM CDT Mild late onset Alzheimer's dementia without behavioral disturbance, psychotic disturbance, mood disturbance, or anxiety (HCC) VITAMIN B12 Routine 09/09/2024 10:45 AM CDT Mild late onset Alzheimer's dementia without behavioral disturbance, psychotic disturbance, mood disturbance, or anxiety (HCC) SCREENING MAMMOGRAM BILATERAL W PRANEETH Schedule Routine, Read Routine (OP Routine) 09/09/2024 10:17 AM CDT Screening mammogram, encounter for PAP AND HPV, REFLEX TO HPV GENOTYPES Routine 09/09/2024 10:06 AM CDT Well woman exam Surveillance Pap following abnormal vaginal Pap DEXA AXIAL SKELETON BONE DENSITY 1 OR MORE SITES Schedule Routine, Read Routine (OP Routine) 04/27/2021 12:40 PM SHOE FOLDER Encounter for osteoporosis screening in asymptomatic postmenopausal patient from Last 3 Months or Most Recently Relevant to Health Maintenance Results * Troponin T high-sensitivity 2-hour (11/15/2024 7:47 AM CDT) Trop T hs 14 <=14 ng/L [facility] ([place]) Comment: Interpretive Data For further hscTnT resources including the diagnostic algorithm and an aid in interpretation, copy and paste this link: https://nrl.testcatalog.org/show/hsTrop Current Interpretive Data last revised 2020. Trop T hs delta -5 ng/L [facility] ([place]) Trop T hs interp Equivocal [facility] ([place]) Blood 11/15/2024 7:47 AM CDT 11/15/2024 7:50 AM CDT us Rae Bryant MD LAB BLOOD ORDERABLES Fi nal Result Performing Organization Address City/[facility] Co de Phone Number [facility] ([place]) [address] [facility] [place] [address] * (ABNORMAL) Urinalysis reflex to microscopic and culture Urine (11/15/2024 7:19 AM CDT) Color, ur Yellow Yellow Clarity, ur Turbid(A) Clear [facility] ([place]) Specific gravity, ur 1.034(H) 1.003 - 1.030 [facility] ([place]) pH, urine 5.5 [facility] ([place]) Comment: Interpretive Data U rine pH is affected by diet, medications, systemic acid-base disturbances, and renal tubular function. pH may affect urinary stone formation. For example, urine pH below 6.0 may help reduce the tendency for calcium phosphate stones and pH greater than 6.0 may reduce the tendency for uric acid stone formation. Source: [facility] Current Interpretive Data was last revised on 2017 Protein, ur ql 1+(A) Negative [facility] ([place]) Glucose, ur ql Negative Negative [facility] ([place]) Ketones, ur Negative Negative [facility] ([place]) Bilirubin, ur Negative Negative [facility] ([place]) Blood, ur Trace(A) Negative [facility] ([place]) Urobilinogen, ur <2.0 <2.0 mg/dL [facility] ([place]) Nitrite, ur Negative Negative [facility] ([place]) Leukocyte esterase, ur 4+(A) Negative [facility] ([place]) UA reflex comment Reflex to microscopic UA will be performed. [facility] ([place]) Urine 11/15/2024 7:19 AM CDT 11/15/2024 7:22 AM CDT us Jasson Murcia MD LAB MICROBIOLOGY - GENERAL ORDERABLES Final Result [facility] (GERA) 1 [facility] [place] [address] * (ABNORMAL) Urinalysis, microscopic only (11/15/2024 7:19 AM CDT) WBC, ur >50(A) 0 - 5 /HPF RBC, ur 3-5(A) 0 - 2 /HPF [facility] ([place]) Epithelial cells, squamous, ur 6-10(A) 0 - 5 /HPF [facility] ([place]) Bacteria, ur Trace(A) [facility] ([place]) Mucous, ur Present(A) [facility] (GERA) Hyaline casts, ur 21-50(A) 0 - 10 /LPF [facility] ([place]) Culture Reflex Comment Reflex to urine culture will be performed. [facility] ([place]) Urine 11/15/2024 7:19 AM CDT 11/15/2024 7:22 AM CDT Rae Bryant MD LAB URINE ORDERABLES Fi nal Result [facility] (GER[place]) 1 [facility] [place] [address] * (ABNORMAL) Urine culture Urine (11/15/2024 7:19 AM CDT) Report Final Report: Greater than or equal to 100,000 colonies/mL of Klebsiella pneumoniae Greater than or equal to 100,000 colonies/mL of Klebsiella pneumoniae #2 Plus growth of clinically insignificant bacterial demi. (.) Comment:Testing performed by : [facility], [address] [facility], [place]., [address] Organism KLEBSIELLA PNEUMONIAE [facility] ([place]) Organism KLEBSIELLA PNEUMONIAE [facility] ([place]) Organism PLUS GROWTH OF CLINICALLY INSIGNIFICANT DEMI. [facility] ([place]) Urine 11/15/2024 7:19 AM CDT 11/15/2024 10:55 AM CDT Narrative [facility] ([place]) - 11/17/2024 9:37 AM CDT Urine culture reflexed based upon urinalysis results. Testing performed by [facility] Microbiology Laboratory ([phone]) Organism Antibiotic Method Susceptibility Klebsiella pneumoniae Ampicillin INTERPRETATION Resistant Klebsiella pneumoniae Cefazolin INTERPRETATION Susceptible Klebsiella pneumoniae Nitrofurantoin INTERPRETATION Resistant Klebsiella pneumoniae Gentamicin INTERPRETATION Susceptible Klebsiella pneumoniae Trimethoprim with Sulfamethoxazole INTERPRETATION Susceptible Klebsiella pneumoniae Meropenem INTERPRETATION Susceptible Klebsiella pneumoniae Cefepime INTERPRETATION Susceptible Klebsiella pneumoniae Ciprofloxacin INTERPRETATION Susceptible Klebsiella pneumoniae Ceftazidime INTERPRETATION Susceptible Klebsiella pneumoniae Ceftriaxone INTERPRETATION Susceptible Klebsiella pneumoniae Piperacillin/Tazobactam INTERPRE TATION Susceptible Klebsiella pneumoniae Cephalexin INTERPRETATION Susceptible Klebsiella pneumoniae Cefuroxime-axetil INTERPRETATION Susceptible Klebsiella pneumoniae Cefdinir INTERPRETATION Susceptible Klebsiella pneumoniae Ampicillin INTERPRETATION Resistant Klebsiella pneumoniae Cefazolin INTERPRETATION Susceptible Klebsiella pneumoniae Nitrofurantoin INTERPRETATION Resistant Klebsiella pneumoniae Gentamicin INTERPRETATION Susceptible Klebsiella pneumoniae Trimethoprim with Sulfamethoxazole INTERPRETATION Resistant Klebsiella pneumoniae Meropenem INTERPRETATION Susceptible Klebsiella pneumoniae Cefepime INTERPRETATION Susceptible Klebsiella pneumoniae Ciprofloxacin INTERPRETATION Resistant Klebsiella pneumoniae Ceftazidime INTERPRETATION Susceptible Klebsiella pneumoniae Ceftriaxone INTERPRETATION Susceptible Klebsiella pneumoniae Piperacillin/Tazobactam INTERPRE TATION Susceptible Klebsiella pneumoniae Cephalexin INTERPRETATION Susceptible Klebsiella pneumoniae Cefuroxime-axetil INTERPRETATION Susceptible Klebsiella pneumoniae Cefdinir INTERPRETATION Susceptible us Rae Bryant MD LAB MICROBIOLOGY - [facility] ORDERABLES Final Result [facility] ([place]A) 1 [facility] Department [place] [address] * CT Abdomen Pelvis W Contrast (11/15/2024 6:58 AM CDT) Anatomical Region Laterality Modality Body N/A Computed Tomogra phy 11/15/2024 7:17 AM CDT Narrative 11/15/2024 7:30 AM CDT EXAM DESCRIPTION: CT ABDOMEN PELVIS W CONTRAST REASON FOR STUDY: Abdominal pain, acute, nonlocalized c/o having diarrhea and feeling increased weakness for the past 3 weeks TECHNIQUE: CT scan of the abdomen and pelvis performed with intravenous and without oral contrast using helical scanning technique with dynamic intravenous contrast injection. Reconstructed coronal and sagittal MPR images reviewed. All images stored on PACS. Automated exposure control was used as a dose optimization technique for this examination. CONTRAST TYPE/DOSE: 75mL of IOVERSOL 350 MG IODINE/ML INTRAVENOUS SYRINGE injected via intravenous COMPARISON: 07/05/2024, 01/25/2024 REFERENCE: Per ACR white paper recommendations, unless otherwise specified no follow-up imaging is recommended for incidental renal and adrenal lesions per consensus recommendations based on imaging criteria. Further lab evaluation could be pursued based on clinical findings. FINDINGS: LOWER CHEST: Partially visualized pacemaker/AICD. Unchanged lucency of the left lung base which may reflect air trapping. Calcified pulmonary nodules which likely represent sequelae of prior granulomatous disease. LIVER: No concerning lesions. GALLBLADDER/BILE DUCTS: Similar-appearing mild biliary ductal dilatation which may be physiologic in the setting of prior cholecystectomy. Chronic 4 mm choledocholithiasis within the distal common bile duct which has been present dating back to at least 01/25/2024 (such as 2; 51). SPLEEN: Small splenule and calcified granuloma. PANCREAS: Small sub 5 mm hypodensities within the pancreatic body and tail which may reflect small side branch IPMNs but are of doubtful clinical significance (such as 2; 36). No main duct dilatation or worrisome features. ADRENALS: No measurable nodule. KIDNEYS/URETERS: Inferiorly displaced and malrotated right kidney. Numerous subcentimeter hypodensities which are too small to further characterize. Bilateral nonobstructing nephrolithiasis measuring up to approximately 4 mm. No hydronephrosis. BLADDER/URINARY: Partially decompressed. Obscured by streak artifact. REPRODUCTIVE: Status post hysterectomy. Ovaries are not definitively visualized and poorly evaluated by CT. GASTROINTESTINAL: Colonic diverticulosis without acute inflammation. Apparent wall thickening of the sigmoid colon favored secondary to decompression and/or chronic scarring in the setting of extensive diverticulosis. A few mildly prominent fluid-filled loops of small bowel in the right lower quadrant, decreased from prior. No dilated bowel loops. No significant bowel wall thickening. Apparent wall thickening of the terminal ileum favored secondary to decompression. Appendix is not definitively visualized. However, there are no significant inflammatory changes within the right lower quandrant. Liquid stool within the colon compatible with reported history of diarrhea. LYMPH NODES: No pathologically enlarged abdominal or pelvic lymphadenopathy. PERITONEUM/RETROPERITONEUM: Trace fluid in the pelvis which may be reactive. No organized drainable fluid collection. No free air. VASCULATURE: Multifocal atherosclerotic changes of the abdominal aorta and its major branches. No abdominal aortic aneurysm. MUSCULOSKELETAL: Status post left total hip arthroplasty. Diffuse bone demineralization. Multilevel degenerative changes of the visualized spine. Grade 1 anterolisthesis L3 on L4. No aggressive appearing osseous lesions. No acute osseous abnormality. OTHER: No significant abnormality. IMPRESSION: 1. Liquid stool within the colon compatible with reported history of diarrhea. No significant bowel wall thickening or inflammatory changes. 2. Similar-appearing mild biliary ductal dilatation which may be physiologic in the setting of prior cholecystectomy. Chronic 4 mm choledocholithiasis within the distal common bile duct which has been present dating back to at least 01/25/2024. Recommend correlation with laboratory values. 3. Additional incidental and chronic findings including nonobstructing nephrolithiasis and colonic diverticulosis. THIS IS AN ELECTRONICALLY VERIFIED FINAL REPORT 11/15/2024 7:30 AM - Electronically signed by Bola Cueva M.D. NS: NS Report ID: [id number] Reading Location: [place] [id number] Procedure Note Bola Cueva MD - 11/15/2024 EXAM DESCRIPTION: CT ABDOMEN PELVIS W CONTRAST REASON FOR STUDY: Abdominal pain, acute, nonlocalized c/o having diarrhea and feeling increased weakness for the past 3 weeks TECHNIQUE: CT scan of the abdomen and pelvis performed with intravenousand without oral contrast using helical scanning technique with dynamic intravenous contrast injection. Reconstructed coronal and sagittal MPRimages reviewed. All images stored on PACS. Automated exposure control was usedas a dose optimization technique for this examination. CONTRAST TYPE/DOSE: 75mL of IOVERSOL 350 MG IODINE/ML INTRAVENOUSSYRINGE injected via intravenous COMPARISON: 07/05/2024, 01/25/2024 REFERENCE: Per ACR white paper recommendations, unless otherwise specifiedno follow-up imaging is recommended for incidental renal and adrenal lesionsper consensus recommendations based on imaging criteria. Further labevaluation could be pursued based on clinical findings. FINDINGS: LOWER CHEST: Partially visualized pacemaker/AICD. Unchanged lucency ofthe left lung base which may reflect air trapping. Calcified pulmonarynodules which likely represent sequelae of prior granulomatous disease. LIVER: No concerning lesions. GALLBLADDER/BILE DUCTS: Similar-appearing mild biliary ductal dilatation which may be physiologic in the setting of prior cholecystectomy. Chronic4 mm choledocholithiasis within the distal common bile duct which has been present dating back to at least 01/25/2024 (such as 2; 51). SPLEEN: Small splenule and calcified granuloma. 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 No main duct dilatation or worrisomefeatures. ADRENALS: No measurable nodule. KIDNEYS/URETERS: Inferiorly displaced and malrotated right kidney.Numerous subcentimeter hypodensities which are too small to further characterize. Bilateral nonobstructing nephrolithiasis measuring up to approximately 4mm. No hydronephrosis. BLADDER/URINARY: Partially decompressed. Obscured by streak artifact. REPRODUCTIVE: Status post hysterectomy. Ovaries are not definitively visualized and poorly evaluated by CT. GASTROINTESTINAL: Colonic diverticulosis without acute inflammation. Apparent wall thickening of the sigmoid colon favored secondary to decompression and/or chronic scarring in the setting of extensive diverticulosis. A few mildly prominent fluid-filled loops of small bowelin the right lower quadrant, decreased from prior. No dilated bowel loops.No significant bowel wall thickening. Apparent wall thickening of theterminal ileum favored secondary to decompression. Appendix is not definitively visualized. However, there are no significant inflammatory changes withinthe right lower quandrant. Liquid stool within the colon compatible withreported history of diarrhea. LYMPH NODES: No pathologically enlarged abdominal or pelviclymphadenopathy. PERITONEUM/RETROPERITONEUM: Trace fluid in the pelvis which may bereactive. No organized drainable fluid collection. No free air. VASCULATURE: Multifocal atherosclerotic changes of the abdominal aortaand its major branches. No abdominal aortic aneurysm. MUSCULOSKELETAL: Status post left total hip arthroplasty. Diffuse bone demineralization. Multilevel degenerative changes of the visualizedspine. Grade 1 anterolisthesis L3 on L4. No aggressive appearing osseouslesions. No acute osseous abnormality. OTHER: No significant abnormality. IMPRESSION: 1. Liquid stool within the colon compatible with reported history of diarrhea. No significant bowel wall thickening or inflammatory changes. 2. Similar-appearing mild biliary ductal dilatation which may bephysiologic in the setting of prior cholecystectomy. Chronic 4 mm choledocholithiasis within the distal common bile duct which has been present dating back toat least 01/25/2024. Recommend correlation with laboratory values. 3. Additional incidental and chronic findings including nonobstructing nephrolithiasis and colonic diverticulosis. THIS IS AN ELECTRONICALLY VERIFIED FINAL REPORT 11/15/2024 7:30 AM - Electronically signed by Bola Cueva M.D. NS: NS Report ID: [id number] Reading Location: [place] [id number] us Jasson Murcia MD IMG CT PROCEDURES F inal Result * (ABNORMAL) Troponin T high-sensitivity series (baseline, 2hr, 4hr, 6hr) (11/15/2024 5:41 AM CDT) Trop T hs 19(H) <=14 ng/L [facility] ([place]) Comment: Interpretive Data For further hscTnT resources including the diagnostic algorithm and an aid in interpretation, copy and paste this link: https://nrl.testcatalog.org/show/hsTrop Current Interpretive Data last revised 2020. Blood 11/15/2024 5:41 AM CDT 11/15/2024 5:57 AM CDT us Rae Bryant MD LAB BLOOD ORDERABLES Fi nal Result [facility] ([place]) 1 [facility] Department [place] [address] * (ABNORMAL) eGFR (11/15/2024 5:41 AM CDT) eGFR 46(L) >=60 mL/min/1. 73 m2 Comment: Interpretive Data Reference Interval Normal >/= 90 mL/min/1.73m2 Mildly decreased* 60 - 89 mL/min/1.73m2 Mildly to moderately decreased 45 - 59 mL/min/1.73m2 Moderately to severely decreased 30 - 44 mL/min/1.73m2 Severely decreased 15 - 29 mL/min/1.73m2 Kidney Failure < 15 mL/min/1.73m2 *Relative to young adult level Estimated glomerular filtration rate is determined by the 2020 CKD-EPI equation recommended by the National Kidney Foundation (A Unifying Approach to GFR Estimation: Recommendations of the NKF-ASK Task Force on Reassessing the Inclusion of Race in Diagnosing Kidney Disease, JASN 2020). The CKD-EPI equation should not be used for patients with unstable renal function and has not been validated in children and those over 70. Current interpretive data was last reviewed 2021. Blood 11/15/2024 5:41 AM CDT 11/15/2024 5:45 AM CDT us Rae Bryant MD LAB BLOOD ORDERABLES Fi nal Result [facility] ([place]) 1 [facility] [place] [address] * (ABNORMAL) Differential, auto (11/15/2024 5:41 AM CDT) Neutrophil abs 9.92(H) 1.50 - 6.50 K/cumm Imm gran abs 0.02 0.00 - 0.10 K/cumm [facility] ([place]) Lymphocyte abs 1.91 0.80 - 3.30 K/cumm [facility] ([place]) Monocyte abs 1.32(H) 0.20 - 0.80 K/cumm [facility] ([place]) Eosinophil abs 0.14 0.00 - 0.50 K/cumm [facility] ([place]) Basophil abs 0.04 0.00 - 0.10 K/cumm [facility] ([place]) Neutrophil pct 74.4 % [facility] ([place]) Comment: Interpretive Data Percent cell count reference ranges are not reported, since discordance with absolute values may lead to misinterpretation of CBC data. Current Interpretive Data was last revised on 2017. Imm gran pct 0.1 % [facility] ([place]) Comment: Interpretive Data Percent cell count reference ranges are not reported, since discordance with absolute values may lead to misinterpretation of CBC data. Current Interpretive Data was last revised on 2017. Lymphocyte pct 14.3 % [facility] ([place]) Comment: Interpretive Data Percent cell count reference ranges are not reported, since discordance with absolute values may lead to misinterpretation of CBC data. Current Interpretive Data was last revised on 2017. Monocyte pct 9.9 % [facility] ([place]) Comment: Interpretive Data Percent cell count reference ranges are not reported, since discordance with absolute values may lead to misinterpretation of CBC data. Current Interpretive Data was last revised on 2017. Eosinophil pct 1.0 % [facility] ([place]) Comment: Interpretive Data Percent cell count reference ranges are not reported, since discordance with absolute values may lead to misinterpretation of CBC data. Current Interpretive Data was last revised on 2017. Basophil pct 0.3 % [facility] ([place]) Comment: Interpretive Data Percent cell count reference ranges are not reported, since discordance with absolute values may lead to misinterpretation of CBC data. Current Interpretive Data was last revised on 2017. Blood 11/15/2024 5:41 AM CDT 11/15/2024 5:45 AM CDT us Rae Bryant MD LAB BLOOD ORDERABLES [facility] Result [facility] ([place]) 1 [facility] Department of Laboratories [place], [place] [id number] * (ABNORMAL) CBC with auto differential (11/15/2024 5:41 AM CDT) WBC 13.35(H) 3.80 - 9.90 K/cumm Hgb 12.0 11.9 - 15.5 g/dL [facility] ([place]) Hct 38.1 35.6 - 45.5 % [facility] ([place]) Plt 158 150 - 400 K/cumm [facility] ([place]) MPV 11.4 9.1 - 12.3 fL [facility] ([place]) RBC 4.17 3.90 - 5.20 M/cumm [facility] ([place]) MCV 91.4 81.3 - 96.4 fL [facility] ([place]) MCH 28.8 27.1 - 33.3 pg [facility] ([place]) MCHC 31.5(L) 32.3 - 35.7 g/dL [facility] ([place]) RDW CV 14.7 11.1 - 14.9 % [facility] ([place]) RDW SD 49.2(H) 35.7 - 48.1 fL [facility] ([place]) NRBC abs 0.00 0.00 - 0.01 K/cumm [facility] ([place]) Blood 11/15/2024 5:41 AM CDT 11/15/2024 5:45 AM CDT us Jasson Murcia MD LAB BLOOD ORDERABLE S Final Result [facility] ([place]) 1 [facility] [place] [address] * Magnesium (11/15/2024 5:41 AM CDT) Pathologist [facility] Magnesium 1.6 1.4 - 2.5 mg/dL [facility] Blood 11/15/2024 5:41 AM CDT 11/15/2024 5:57 AM CDT us Jasson Murcia MD LAB BLOOD ORDERABLE S Final Result [facility] ([place]) 1 [facility] [place] [address] * (ABNORMAL) Comprehensive metabolic panel (11/15/2024 5:41 AM CDT) Sodium 135 135 - 145 mmol/L [facility] ([place]) Potassium, pl 4.8 3.3 - 4.9 mmol/L [facility] ([place]) Chloride 105 97 - 110 mmol/L [facility] ([place]) CO2 17(L) 22 - 32 mmol/L [facility] ([place]) Anion gap 13 2 - 15 mmol/L [facility] BUN 26(H) 6 - 25 mg/dL [facility] ([place]) Creatinine 1.15(H) 0.60 - 1.10 mg/dL [facility] ([place]) Glucose 143 70 - 199 mg/dL [facility] ([place]) Comment: Interpretive Data Fasting glucose >/= 126 mg/dl is diagnostic for diabetes. Fasting is defined as no caloric intake for at least 8 hours. Fasting glucose between 100 mg/dl to 125 mg/dl is diagnostic of prediabetes. In a patient with classic symptoms of hyperglycemia or hyperglycemic crisis, a random glucose >/= 200 mg/dl is diagnostic for diabetes. In the absence of unequivocal hyperglycemia, results should be confirmed by repeat testing. The classification and Diagnosis of Diabetes Diabetes Care 2021; 46: S19-S40. Current interpretive data was last revised 2022. Calcium 10.5(H) 8.5 - 10.3 mg/dL [facility] ([place]) Bilirubin, total 0.5 0.1 - 1.2 mg/dL [facility] ([place]) Protein, pl 7.3 6.5 - 8.5 g/dL [facility] ([place]) Albumin 4.3 3.5 - 5.0 g/dL [facility] ([place]) Alk phos 72 40 - 130 Units/L [facility] ([place]) ALT 17 7 - 45 Units/L [facility] ([place]) AST 27 10 - 45 Units/L [facility] ([place]) Blood 11/15/2024 5:41 AM CDT 11/15/2024 5:45 AM CDT us Jasson Murcia MD LAB BLOOD ORDERABLE S Final Result [facility] ([place]) 1 [facility] Department [place] [address] * ECG 12 lead (11/15/2024 5:30 AM CDT) 11/15/2024 5:30 AM CDT Narrative [facility] - 11/15/2024 8:39 AM CDT Vent Rate: 74 bpm RR Interval: 805 msec SD Interval: 167 msec QRS Duration: 123 msec QT Interval: 442 msec QTC Interval: 469 msec P-R-T [place]: 81 - 78 - 65 degrees IMPRESSION: ELECTRONIC VENTRICULAR PACEMAKER Compared to prior EKG, PVC is new and 1 atrial spike noted. Electronically Signed By: Dr Trever Mitchell us Jasson Murcia MD ECG ORDERABLES [facility] * CT Head WO Contrast (10/24/2024 9:34 PM CDT) Anatomical Region Laterality Modality Head and Neck N/A Computed Tomogra phy 10/24/2024 10:4 5 PM CDT Narrative 10/24/2024 10:48 PM CDT EXAM DESCRIPTION: CT HEAD WO CONTRAST REASON FOR STUDY: fall C/o having a fall tonight and hit the frontal side of her forehead. Hx of TIA TECHNIQUE: Axial images acquired through the brain without intravenous contrast. Images stored on PACS. Automated exposure control was used as a dose optimization technique for this examination. COMPARISON: 01/29/2023 FINDINGS: BRAIN: No hemorrhage, edema or mass effect. No recent infarct. Generalized atrophy and periventricular microvascular white matter ischemic change. EXTRA-AXIAL SPACES: No fluid collections. No masses. CALVARIUM: No fracture. SINUSES/MASTOIDS: Near complete opacification of the right maxillary sinus and there is partial opacification of the right ethmoid air cells. ORBITS: No significant abnormality. OTHER: No other significant abnormality. IMPRESSION: No acute intracranial findings. THIS IS AN ELECTRONICALLY VERIFIED FINAL REPORT 10/24/2024 10:48 PM - Electronically signed by Jean Carlos Blanco M.D. KT: [place] Report ID: [id number] Reading Location: [id number] Procedure Note Jean Carlos Blanco MD - 10/24/2024 EXAM DESCRIPTION: CT HEAD WO CONTRAST REASON FOR STUDY: fall C/o having a fall tonight and hit the frontal side of her forehead. Hx ofTIA TECHNIQUE: Axial images acquired through the brain without intravenous contrast. Images stored on PACS. Automated exposure control was used asa dose optimization technique for this examination. COMPARISON: 01/29/2023 FINDINGS: BRAIN: No hemorrhage, edema or mass effect. No recent infarct. Generalized atrophy and periventricular microvascular white matterischemic change. EXTRA-AXIAL SPACES: No fluid collections. No masses. CALVARIUM: No fracture. SINUSES/MASTOIDS: Near complete opacification of the right maxillarysinus and there is partial opacification of the right ethmoid air cells. ORBITS: No significant abnormality. OTHER: No other significant abnormality. IMPRESSION: No acute intracranial findings. THIS IS AN ELECTRONICALLY VERIFIED FINAL REPORT 10/24/2024 10:48 PM - Electronically signed by Jean Carlos Blanco M.D. KT: [place] Report ID: [id number] Reading Location: [place] [address] Jose Pierson MD IMG CT PROCEDURES Final Result * XR Knee Left 1 or 2 Views (10/24/2024 9:16 PM CDT) Anatomical Region Laterality Modality Lower Extremities, Knee Left Computed Radiography 10/24/2024 10:4 4 PM CDT Narrative 10/24/2024 10:45 PM CDT EXAM DESCRIPTION: XR KNEE LEFT 1 OR 2 VIEWS REASON FOR STUDY: Left knee pain status post fall today. TECHNIQUE: 2 radiographic view(s) of the left knee . COMPARISON: 01/06/2018 FINDINGS: Two views of the left knee demonstrate surgical plate and multiple screws and cerclage wires traversing incompletely visualized old, healed fracture of the distal femoral diaphysis. The bones are osteopenic. No new fracture or dislocation. Degenerative narrowing of the medial compartment of the knee and the patellofemoral joint. Atherosclerotic calcification. IMPRESSION: 1. Degenerative change left knee. No acute abnormality. 2. Surgical plate and multiple screws and cerclage wires traversing incompletely visualized old, healed fracture of the distal femoral diaphysis. THIS IS AN ELECTRONICALLY VERIFIED FINAL REPORT 10/24/2024 10:45 PM - Electronically signed by Jean Carlos Blanco M.D. KT: [place] Report ID: [id number] Reading Location: [id number] Procedure Note Jean Carlos Blanco MD - 10/24/2024 EXAM DESCRIPTION: XR KNEE LEFT 1 OR 2 VIEWS REASON FOR STUDY: Left knee pain status post fall today. TECHNIQUE: 2 radiographic view(s) of the left knee . COMPARISON: 01/06/2018 FINDINGS: Two views of the left knee demonstrate surgical plate and multiple screwsand cerclage wires traversing incompletely visualized old, healed fracture ofthe distal femoral diaphysis. The bones are osteopenic. No new fracture or dislocation. Degenerative narrowing of the medial compartment of the kneeand the patellofemoral joint. Atherosclerotic calcification. IMPRESSION: 1. Degenerative change left knee. No acute abnormality. 2. Surgical plate and multiple screws and cerclage wires traversing incompletely visualized old, healed fracture of the distal femoraldiaphysis. THIS IS AN ELECTRONICALLY VERIFIED FINAL REPORT 10/24/2024 10:45 PM - Electronically signed by Jean Carlos Blanco M.D. KT: [place] Report ID: [id number] Reading Location: [id number] Jose Pierson MD IMG XR PROCEDURES Final Result * XR Hip Left 2 or 3 Views W Pelvis (10/24/2024 9:16 PM CDT) Anatomical Region Laterality Modality Lower Extremities, Hip, Pelvis Left C omputed Radiography 10/24/2024 10:4 8 PM CDT Narrative 10/24/2024 10:50 PM CDT EXAM DESCRIPTION: XR HIP LEFT 2 OR 3 VIEWS W PELVIS REASON FOR STUDY: fall BIBEMS from home for fall. Left leg shortening noted, pt states I think I'm just holding it in from the pain. TECHNIQUE: 4 radiographic view(s) of the left hip and pelvis . COMPARISON: None FINDINGS: Four views of the pelvis and left hip demonstrate left total knee arthroplasty which appears well seated. Surgical plate and multiple screws and cerclage wires traverse old, healed fracture deformity through the mid to distal left femur. There is degenerative axial narrowing of the right hip joint. Degenerative change and scoliosis of the visualized lower lumbar spine. The bones are osteopenic. IMPRESSION: Left total knee arthroplasty appears well seated. Surgical plate and multiple screws and cerclage wires traverse old, healed fracture deformity through the mid to distal left femur. THIS IS AN ELECTRONICALLY VERIFIED FINAL REPORT 10/24/2024 10:50 PM - Electronically signed by Jean Carlos Blanco M.D. KT: [place] Report ID: [id number] Reading Location: [id number] Procedure Note Jean Carlos Blanco MD - 10/24/2024 EXAM DESCRIPTION: XR HIP LEFT 2 OR 3 VIEWS W PELVIS REASON FOR STUDY: fall BIBEMS from home for fall. Left leg shortening noted, pt states I thinkI'm just holding it in from the pain. TECHNIQUE: 4 radiographic view(s) of the left hip and pelvis . COMPARISON: None FINDINGS: Four views of the pelvis and left hip demonstrate left total kneearthroplasty which appears well seated. Surgical plate and multiple screws andcerclage wires traverse old, healed fracture deformity through the mid to distalleft femur. There is degenerative axial narrowing of the right hip joint. Degenerative change and scoliosis of the visualized lower lumbar spine.The bones are osteopenic. IMPRESSION: Left total knee arthroplasty appears well seated. Surgical plate andmultiple screws and cerclage wires traverse old, healed fracture deformity throughthe mid to distal left femur. THIS IS AN ELECTRONICALLY VERIFIED FINAL REPORT 10/24/2024 10:50 PM - Electronically signed by Jean Carlos Blanco M.D. KT: [place] Report ID: [id number] Reading Location: [place] [address] Jose Pierson MD IMG XR PROCEDURES Final Result * (ABNORMAL) Urinalysis reflex to microscopic and culture Urine (10/21/2024 2:45 PM CDT) Color, ur Yellow Yellow Clarity, ur Turbid(A) Clear [facility] ([place]) Specific gravity, ur 1.016 1.003 - 1.030 [facility] ([place]) pH, urine 5.5 [facility] ([place]) Comment: Interpretive Data U rine pH is affected by diet, medications, systemic acid-base disturbances, and renal tubular function. pH may affect urinary stone formation. For example, urine pH below 6.0 may help reduce the tendency for calcium phosphate stones and pH greater than 6.0 may reduce the tendency for uric acid stone formation. Source: [facility] Current Interpretive Data was last revised on 2017 Protein, ur ql Trace Negative [facility] ([place]) Glucose, ur ql Negative Negative [facility] ([place]) Ketones, ur Negative Negative [facility] ([place]) Bilirubin, ur Negative Negative [facility] ([place]) Blood, ur 1+(A) Negative [facility] ([place]) Urobilinogen, ur <2.0 <2.0 mg/dL [facility] ([place]) Nitrite, ur Negative Negative [facility] ([place]) Leukocyte esterase, ur 4+(A) Negative [facility] ([place]) UA reflex comment Reflex to microscopic UA will be performed. [facility] ([place]) Urine 10/21/2024 2:45 PM CDT 10/21/2024 2:50 PM CDT Jose Pierson MD LAB MICROBIOLOGY - GENERAL ORD ERABLES Final Result [facility] ([place]) 1 [facility] [place] [address] * (ABNORMAL) Urinalysis, microscopic only (10/21/2024 2:45 PM CDT) WBC, ur >50(A) 0 - 5 /HPF RBC, ur 6-10(A) 0 - 2 /HPF [facility] ([place]) Epithelial cells, squamous, ur 1-5 0 - 5 /HPF [facility] ([place]) Bacteria, ur 2+(A) [facility] ([place]) Mucous, ur Present(A) [facility] ([place]) Hyaline casts, ur 21-50(A) 0 - 10 /LPF [facility] ([place]) Culture Reflex Comment Reflex to urine culture will be performed. [facility] ([place]) Urine 10/21/2024 2:45 PM CDT 10/21/2024 2:50 PM CDT us Jose Pierson MD LAB URINE ORDERABLES Final Res ult [facility] ([place]) 1 [facility] [place] [address] * (ABNORMAL) Urine culture Urine (10/21/2024 2:45 PM CDT) Report Final Report: Greater than or equal to 100,000 colonies/mL of Klebsiella pneumoniae Plus growth of clinically insignificant bacterial demi. (.) Comment:Testing performed by : [facility], [address] [facility] [place] [address] Organism KLEBSIELLA PNEUMONIAE [facility] ([place]) Organism PLUS GROWTH OF CLINICALLY INSIGNIFICANT DEMI. [facility] ([place]) Urine 10/21/2024 2:45 PM CDT 10/21/2024 6:30 PM CDT Narrative [facility] ([place]) - 10/23/2024 1:38 PM CDT Urine culture reflexed based upon urinalysis results. Testing performed by [facility] ([phone]) Organism Antibiotic Method Susceptibility Klebsiella pneumoniae Ampicillin INTERPRETATION Resistant Klebsiella pneumoniae Cefazolin INTERPRETATION Susceptible Klebsiella pneumoniae Nitrofurantoin INTERPRETATION Intermediate Klebsiella pneumoniae Gentamicin INTERPRETATION Susceptible Klebsiella pneumoniae Trimethoprim with Sulfamethoxazole INTERPRETATION Susceptible Klebsiella pneumoniae Meropenem INTERPRETATION Susceptible Klebsiella pneumoniae Cefepime INTERPRETATION Susceptible Klebsiella pneumoniae Ciprofloxacin INTERPRETATION Susceptible Klebsiella pneumoniae Ceftazidime INTERPRETATION Susceptible Klebsiella pneumoniae Ceftriaxone INTERPRETATION Susceptible Klebsiella pneumoniae Piperacillin/Tazobactam INTERPRE TATION Susceptible Klebsiella pneumoniae Cephalexin INTERPRETATION Susceptible Klebsiella pneumoniae Cefuroxime-axetil INTERPRETATION Susceptible Klebsiella pneumoniae Cefdinir INTERPRETATION Susceptible us Jose Pierson MD LAB MICROBIOLOGY - GENERAL ORD ERABLES Final Result [facility] ([place]) 1 [facility] Department [place] [address] * Sepsis Lactate w/ Reflex (10/21/2024 12:30 PM CDT) Sepsis Lactate 1.9 0.7 - 2.0 mmol/L Blood 10/21/2024 12:3 0 PM CDT 10/21/2024 12:37 PM CDT Jose Pierson MD LAB BLOOD ORDERABLES Final Res ult Performing Organization Address City/[facility]/ZIP Co de Phone Number [facility] ([place]) [address] [facility] [place] [address] * (ABNORMAL) eGFR (10/21/2024 12:30 PM CDT) eGFR 50(L) >=60 mL/min/1. 73 m2 Comment: Interpretive Data Reference Interval Normal >/= 90 mL/min/1.73m2 Mildly decreased* 60 - 89 mL/min/1.73m2 Mildly to moderately decreased 45 - 59 mL/min/1.73m2 Moderately to severely decreased 30 - 44 mL/min/1.73m2 Severely decreased 15 - 29 mL/min/1.73m2 Kidney Failure < 15 mL/min/1.73m2 *Relative to young adult level Estimated glomerular filtration rate is determined by the 2020 CKD-EPI equation recommended by the National Kid[employer] (A Unifying Approach to GFR Estimation: Recommendations of the NKF-ASK Task Force on Reassessing the Inclusion of Race in Diagnosing Kidney Disease, JASN 2020). The CKD-EPI equation should not be used for patients with unstable renal function and has not been validated in children and those over 70. Current interpretive data was last reviewed 2021. Blood 10/21/2024 12:3 0 PM CDT 10/21/2024 12:37 PM CDT Jose Pierson MD LAB BLOOD ORDERABLES Final Res ult [facility] ([place]) 1 [facility] [place] [address] * Differential, auto (10/21/2024 12:30 PM CDT) Neutrophil abs 5.60 1.50 - 6.50 K/cumm Imm gran abs 0.01 0.00 - 0.10 K/cumm [facility] ([place]) Lymphocyte abs 1.69 0.80 - 3.30 K/cumm [facility] ([place]) Monocyte abs 0.62 0.20 - 0.80 K/cumm [facility] ([place]) Eosinophil abs 0.11 0.00 - 0.50 K/cumm [facility] ([place]) Basophil abs 0.04 0.00 - 0.10 K/cumm [facility] ([place]) Neutrophil pct 69.4 % [facility] ([place]) Comment: Interpretive Data Percent cell count reference ranges are not reported, since discordance with absolute values may lead to misinterpretation of CBC data. Current Interpretive Data was last revised on 2017. Imm gran pct 0.1 % [facility] ([place]) Comment: Interpretive Data Percent cell count reference ranges are not reported, since discordance with absolute values may lead to misinterpretation of CBC data. Current Interpretive Data was last revised on 2017. Lymphocyte pct 20.9 % [facility] ([place]) Comment: Interpretive Data Percent cell count reference ranges are not reported, since discordance with absolute values may lead to misinterpretation of CBC data. Current Interpretive Data was last revised on 2017. Monocyte pct 7.7 % [facility] ([place]) Comment: Interpretive Data Percent cell count reference ranges are not reported, since discordance with absolute values may lead to misinterpretation of CBC data. Current Interpretive Data was last revised on 2017. Eosinophil pct 1.4 % [facility] ([place]) Comment: Interpretive Data Percent cell count reference ranges are not reported, since discordance with absolute values may lead to misinterpretation of CBC data. Current Interpretive Data was last revised on 2017. Basophil pct 0.5 % [facility] ([place]) Comment: Interpretive Data Percent cell count reference ranges are not reported, since discordance with absolute values may lead to misinterpretation of CBC data. Current Interpretive Data was last revised on 2017. Blood 10/21/2024 12:3 0 PM CDT 10/21/2024 12:37 PM CDT us Jose Pierson MD LAB BLOOD ORDERABLES Final Res ult [facility] ([place]) 1 [facility] [place] [address] * Pro B-type natriuretic peptide (10/21/2024 12:30 PM CDT) NT-proBNP 431 <=450 pg/mL [facility] ([place]) Comment: Interpretive Comments: A. Dyspnea in Acute Care Setting All Ages: < 300 pg/ml, acute heart failure unlikely. < 50 yrs: 300 - 450 pg/ml, further investigation warranted. > 450 pg/ml, acute heart failure likely. 50 - 74 yrs: 300 - 900 pg/ml, further investigation warranted. > 900 pg/ml, acute heart failure likely . > or = 75 yrs: 450 - 1800 pg/ml, further investigation warranted. > 1800 pg/ml, acute heart failure likely. B. Non-acute Setting < 75 yrs < 125 pg/ml, rules out heart failure. > or = 125 pg/ml, further investigation warranted. > or = 75 yrs < 450 pg/ml, rules out heart failure. > or = 450 pg/ml, further investigation warranted. - Knowledge of each individual patient's NT-proBNP range may be more useful than using similar cut-points for every patient. Please note that marked elevations in NT-proBNP levels may be observed in state other than Left Ventricular Congestive Failure, including: acute coronary syndromes, right heart strain/failure (including pulmonary embolism and cor pulmonale), critical illness, renal failure, as well as advanced age. - References: 1. Kaity PAZ et.al. Eur Heart J. 2006:27:330-337. 2. Casey LOWE, Lorne PALMA. J. AM Monica Cardiol: Cardiovasc Imag. 2009;2: 216- 225. Interpretive Data Last Revised Date: 2017. Blood 10/21/2024 12:3 0 PM CDT 10/21/2024 12:37 PM CDT Jose Pierson MD LAB BLOOD ORDERABLES Final Res ult [facility] ([place]) 1 [facility] [place] [address] * (ABNORMAL) CBC with auto differential (10/21/2024 12:30 PM CDT) WBC 8.07 3.80 - 9.90 K/cumm Hgb 11.7(L) 11.9 - 15.5 g/dL [facility] ([place]) Hct 37.4 35.6 - 45.5 % [facility] ([place]) Plt 182 150 - 400 K/cumm [facility] ([place]) MPV 11.3 9.1 - 12.3 fL [facility] ([place]) RBC 4.06 3.90 - 5.20 M/cumm [facility] ([place]) MCV 92.1 81.3 - 96.4 fL [facility] ([place]) MCH 28.8 27.1 - 33.3 pg [facility] ([place]) MCHC 31.3(L) 32.3 - 35.7 g/dL [facility] ([place]) RDW CV 14.5 11.1 - 14.9 % [facility] ([place]) RDW SD 48.6(H) 35.7 - 48.1 fL [facility] ([place]) NRBC abs 0.00 0.00 - 0.01 K/cumm [facility] ([place]) Blood 10/21/2024 12:3 0 PM CDT 10/21/2024 12:37 PM CDT us Jose Pierson MD LAB BLOOD ORDERABLES Final Res ult [facility] ([place]) 1 [facility] [place] [address] * (ABNORMAL) Comprehensive metabolic panel (10/21/2024 12:30 PM CDT) Sodium 141 135 - 145 mmol/L [facility] ([place]) Potassium, pl 4.4 3.3 - 4.9 mmol/L [facility] ([place]) Chloride 104 97 - 110 mmol/L [facility] ([place]) CO2 23 22 - 32 mmol/L [facility] ([place]) Anion gap 14 2 - 15 mmol/L [facility] ([place]) BUN 30(H) 6 - 25 mg/dL [facility] ([place]) Creatinine 1.08 0.60 - 1.10 mg/dL [facility] ([place]) Glucose 97 70 - 199 mg/dL [facility] ([place]) Comment: Interpretive Data Fasting glucose >/= 126 mg/dl is diagnostic for diabetes. Fasting is defined as no caloric intake for at least 8 hours. Fasting glucose between 100 mg/dl to 125 mg/dl is diagnostic of prediabetes. In a patient with classic symptoms of hyperglycemia or hyperglycemic crisis, a random glucose >/= 200 mg/dl is diagnostic for diabetes. In the absence of unequivocal hyperglycemia, results should be confirmed by repeat testing. The classification and Diagnosis of Diabetes Diabetes Care 2021; 46: S19-S40. Current interpretive data was last revised 2022. Calcium 9.8 8.5 - 10.3 mg/dL [facility] ([place]) Bilirubin, total 0.4 0.1 - 1.2 mg/dL [facility] ([place]) Protein, pl 7.0 6.5 - 8.5 g/dL [facility] ([place]) Albumin 4.1 3.5 - 5.0 g/dL [facility] ([place]) Alk phos 68 40 - 130 Units/L [facility] ([place]) ALT 19 7 - 45 Units/L [facility] ([place]) AST 32 10 - 45 Units/L [facility] ([place]) Blood 10/21/2024 12:3 0 PM CDT 10/21/2024 12:37 PM CDT us Jose Pierson MD LAB BLOOD ORDERABLES Final Res ult [facility] ([place]) 1 [facility] [place] [address] * DEVICE CHECK - REMOTE (10/17/2024 8:12 AM CDT) Anatomical Region Laterality Modality Other Narrative 10/18/2024 1:43 PM CDT Images from the original result were not included. 10/17/2024 [facility] remote device check NOTE The following shows snippets from the complete quarterly report. The complete report in its entirety is attached to this Result Text in Joiner Apprentice Presenting EGM (Oct 17, 2024) Last in-office check: August 2024 Next in-office appointment: February 2025 Battery longevity = 9 years AT/AF burden 0 Ap: 4% Arc Air Operator: 97% BiV: 96% Device Nurse Review and Recommendations below Reviewed By Genny Hanson MANAGER INFUSION at 12:42 PM Review and Recommendations below (please forward an in-basket message to your MA if check requires attention) us Ghazal Maurice MD CV CARDIAC SERVICES PROCED URES Final Result * TRANSTHORACIC ECHO (TTE) COMPLETE W DOPPLER/CF WO CONTRAST (09/17/2024 1:38 PM CDT) EF Mod BP 63 % CONS SCIMAGE Anatomical Region Laterality Modality Ultrasound 09/17/2024 1:07 PM CDT Narrative 09/17/2024 2:10 PM CDT [address] [address] Echocardiogram Report Patient Name: MACHELLE COLLINS : 1935 Study Date: 09/17/2024 1:07:53 PM Gender: F Tech: AA Location: echo room 1 Ref Provider: TREVER MITCHELL Height(Cm): BSA: Weight(Kg): Quality: Good Order Provider: TREVER MITCHELL PROCEDURES: Echocardiographic Report: Transthoracic echocardiogram with complete 2D, M-Mode, and color Doppler examination. INDICATIONS: Cardiomyopathy, I38 Endocarditis, valve unspecified, and I42.9 Cardiomyopathy, unspecified. MEASUREMENTS: 2D/MM Value Range Doppler Value Range EF Teich 2D 63.0 % [ 54.0 - 74.0 ] MAYRA Vmax 2.70 cm2 EF Mod BP 63 % [ 54 - 74 ] AV Mean PG 2 mmHg LVIDd 2D 3.98 cm [ 3.80 - 5.20 ] AV Peak Juan Antonio 0.98 m/s [ 1.00 - 1.70 ] LVIDs 2D 2.64 cm [ 2.20 - 3.50 ] AV VTI 20.04 cm LVPWd 2D 1.17 cm [ 0.60 - 0.90 ] LVOT Diam 2.20 cm IVSd 2D 1.21 cm [ 0.60 - 0.90 ] LVOT Peak Juan Antonio 0.70 m/s [ 0.70 - 1.10 ] LA Dimension MM 4.17 cm [ 2.70 - 3.80 ] LVOT VTI 14.98 cm AoR Diam MM 2.71 cm [ 2.70 - 3.70 ] MV E Peak Juan Antonio 0.83 m/s [ 0.60 - 1.30 ] ACS MM 1.67 cm MV A Peak Juan Antonio 0.75 m/s [ 1.00 - 1.20 ] MV Mean PG 2 mmHg MV PHT 56 msec [ 20 - 100 ] MVA 3.10 MV Decel Time 192 msec [ 104 - 258 ] PV Peak Juan Antonio 0.81 m/s [ 0.40 - 0.80 ] TR Peak Juan Antonio 2.59 m/s [ 1.00 - 2.80 ] TR Peak PG 27 mmHg RVSP 33.00 mmHg [ 10.00 - 36.00 ] E` 0.10 m/s E/E` 8.76 [ <= 10.00 ] PA Pressure 5.00 mmHg [ 10.00 - 36.00 ] 2D/MM Value Range Doppler Value Range - FINDINGS: Atrial Septum: Normal atrial septum. Left Ventricle: Normal left ventricular systolic function with no focal wall motion abnormalities. Normal left ventricular size. Mild concentric left ventricular hypertrophy. Normal left ventricular diastolic function. Ejection fraction is measured at 63 %. Left Atrium: There is mild enlargement of left atrium. Right Ventricle: Normal right ventricular size. Normal right ventricular systolic function. Linear artifact in right ventricle suggestive of catheter(s), pacemaker lead(s), or ICD lead(s). Right Atrium: The right atrium is normal in size. Aortic Valve: No evidence of hemodynamically significant aortic stenosis by Doppler. Aortic cusps appear mildly sclerotic. Trileaflet aortic valve. Mitral Valve: Mitral valve leaflets appear mildly thickened. Mild mitral annular calcification. Trivial regurgitation of the mitral valve. Pulmonic Valve: Normal structure of the pulmonic valve. No evidence of pulmonic regurgitation. Tricuspid Valve: Normal structure of the tricuspid valve. Normal right ventricular systolic pressure. Mild tricuspid regurgitation. Pericardium: Normal pericardium with no significant pericardial effusion. Aorta: Ascending aorta is normal. Descending aorta is normal. No aortic root dilation. There is mild atherosclerosis in the aortic root. IVC: Normal size and normal respiratory collapse consistent with normal right atrial pressure (<5 mmHg). Pulmonary Artery: Pulmonary artery not well visualized. CONCLUSIONS: Normal left ventricular systolic function with no focal wall motion abnormalities. Normal left ventricular size. Mild concentric left ventricular hypertrophy. Normal left ventricular diastolic function. Ejection fraction is measured at 63 %. Normal right ventricular size. Normal right ventricular systolic function. Linear artifact in right ventricle suggestive of catheter(s), pacemaker lead(s), or ICD lead(s). There is mild enlargement of left atrium. Mitral valve leaflets appear mildly thickened. Mild mitral annular calcification. Trivial regurgitation of the mitral valve. No evidence of hemodynamically significant aortic stenosis by Doppler. Aortic cusps appear mildly sclerotic. Trileaflet aortic valve. Normal structure of the tricuspid valve. Normal right ventricular systolic pressure. Mild tricuspid regurgitation. Normal pericardium with no significant pericardial effusion. Electronically Signed By: Ghazal Maurice MD 09/17/2024 2:09:23 PM CDT Procedure Note Ghazal Maurice MD - 09/17/[address] [place] [address] Echocardiogram Report Patient Name: MACHELLE COLLINS : 1935 Study Date: 09/17/2024 1:07:53 PM Gender: F Tech: AA Location: echo room 1 Ref Provider: TREVER MITCHELL Height(Cm): BSA: Weight(Kg): Quality: Good Order Provider: TREVER MITCHELL PROCEDURES: Echocardiographic Report: Transthoracic echocardiogram with complete 2D, M-Mode, and color Dopplerexamination. INDICATIONS: Cardiomyopathy, I38 Endocarditis, valve unspecified, and I42.9Cardiomyopathy, unspecified. MEASUREMENTS: 2D/MM Value Range Doppler ValueRange EF Teich 2D 63.0 % [ 54.0 - 74.0 ] MAYRA Vmax 2.70cm2 EF Mod BP 63 % [ 54 - 74 ] AV Mean PG 2 mmHg LVIDd 2D 3.98 cm [ 3.80 - 5.20 ] AV Peak Juan Antonio 0.98 m/s[ 1.00 - 1.70 ] LVIDs 2D 2.64 cm [ 2.20 - 3.50 ] AV VTI 20.04cm LVPWd 2D 1.17 cm [ 0.60 - 0.90 ] LVOT Diam 2.20cm IVSd 2D 1.21 cm [ 0.60 - 0.90 ] LVOT Peak Juan Antonio 0.70 m/s[ 0.70 - 1.10 ] LA Dimension MM 4.17 cm [ 2.70 - 3.80 ] LVOT VTI 14.98cm AoR Diam MM 2.71 cm [ 2.70 - 3.70 ] MV E Peak Juan Antonio 0.83 m/s[ 0.60 - 1.30 ] ACS MM 1.67 cm MV A Peak Juan Antonio 0.75 m/s[ 1.00 - 1.20 ] MV Mean PG 2 mmHg MV PHT 56 msec [ 20 - 100 ] MVA 3.10 MV Decel Time 192 msec [ 104 - 258 ] PV Peak Juan Antonio 0.81 m/s [ 0.40 - 0.80 ] TR Peak Juan Antonio 2.59 m/s [ 1.00 - 2.80 ] TR Peak PG 27 mmHg RVSP 33.00 mmHg [ 10.00 - 36.00 ] E` 0.10 m/s E/E` 8.76 [ <= 10.00 ] PA Pressure 5.00 mmHg [ 10.00 - 36.00 ] 2D/MM Value Range Doppler ValueRange - FINDINGS: Atrial Septum: Normal atrial septum. Left Ventricle: Normal left ventricular systolic function with no focal wall motionabnormalities. Normal left ventricular size. Mild concentric left ventricular hypertrophy.Normal left ventricular diastolic function. Ejection fraction is measured at 63 %. Left Atrium: There is mild enlargement of left atrium. Right Ventricle: Normal right ventricular size. Normal right ventricular systolic function.Linear artifact in right ventricle suggestive of catheter(s), pacemaker lead(s),or ICD lead(s). Right Atrium: The right atrium is normal in size. Aortic Valve: No evidence of hemodynamically significant aortic stenosis by Doppler.Aortic cusps appear mildly sclerotic. Trileaflet aortic valve. Mitral Valve: Mitral valve leaflets appear mildly thickened. Mild mitral annularcalcification. Trivial regurgitation of the mitral valve. Pulmonic Valve: Normal structure of the pulmonic valve. No evidence of pulmonicregurgitation. Tricuspid Valve: Normal structure of the tricuspid valve. Normal right ventricular systolicpressure. Mild tricuspid regurgitation. Pericardium: Normal pericardium with no significant pericardial effusion. Aorta: Ascending aorta is normal. Descending aorta is normal. No aortic rootdilation. There is mild atherosclerosis in the aortic root. IVC: Normal size and normal respiratory collapse consistent with normal rightatrial pressure (<5 mmHg). Pulmonary Artery: Pulmonary artery not well visualized. CONCLUSIONS: Normal left ventricular systolic function with no focal wall motionabnormalities. Normal left ventricular size. Mild concentric left ventricular hypertrophy.Normal left ventricular diastolic function. Ejection fraction is measured at 63 %. Normal right ventricular size. Normal right ventricular systolic function.Linear artifact in right ventricle suggestive of catheter(s), pacemaker lead(s),or ICD lead(s). There is mild enlargement of left atrium. Mitral valve leaflets appear mildly thickened. Mild mitral annularcalcification. Trivial regurgitation of the mitral valve. No evidence of hemodynamically significant aortic stenosis by Doppler.Aortic cusps appear mildly sclerotic. Trileaflet aortic valve. Normal structure of the tricuspid valve. Normal right ventricular systolicpressure. Mild tricuspid regurgitation. Normal pericardium with no significant pericardial effusion. Electronically Signed By: Ghazal Maurice MD 09/17/2024 2:09:23 PM CDT Trever Mitchell MD CV ECHO PROCEDURES Final Resu lt * POCT hemoglobin A1c (09/12/2024 1:00 PM CDT) [facility] Hemoglobin A1C, POC 5.1 4.0 - 5.6 % Capillary blood 09/12/2024 1 :00 PM CDT Starla Trejo NP POINT OF CARE TEST ORDERAB LES Final Result * (ABNORMAL) POCT lipid panel (09/12/2024 1:00 PM CDT) [facility] Cholesterol, POC 100 <200 MG/DL Comment:<100 HDL, POC 36(A) >=40 mg/dL Comment:Glucose - 94 Triglycerides, POC 97 <=149 mg/dL LDL Cholesterol POC 44.6 <=129 mg/dL Chol/HDL Ratio, POC 2.78 NONE Non-HDL Cholesterol, POC 64 NONE mg/dL Cholesterol Total, POC 100 30 - 199 mg/dL Capillary blood 09/12/2024 1 :00 PM CDT Starla Trejo NP POINT OF CARE TEST ORDERAB LES Final Result * (ABNORMAL) POCT urinalysis dipstick (09/12/2024 1:00 PM CDT) [facility] Color, Urine, POC Dark Yellow Clarity, ur, POC Cloudy(A) Clear Glucose, ur, POC Negative Negative Bilirubin, ur, POC Small(A) Negative Ketones, ur, POC Trace(A) Negative Specific [place], POC 1.025 1.003 - 1.030 Blood, ur, POC Hemolyzed, trace(A) Negative pH, ur, POC 5.5 5.0 - 8.0 Protein, ur, POC 30.(A) Negative Urobilinogen, urine, POC 0.2 0.2 - 1.0 mg/dL Nitrite, ur, POC Negative Negative Leukocytes, ur, POC Small(A) Negative Lot Number [id number] Urine 09/12/2024 1:00 PM CDT Starla Trejo NP POINT OF CARE TEST ORDERAB LES Final Result * (ABNORMAL) Urinalysis reflex to microscopic and culture Urine, clean voided (09/12/2024 12:58 PM CDT) Color, ur Yellow Yellow Clarity, ur Turbid(A) Clear [facility] Specific gravity, ur 1.022 1.003 - 1.030 [facility] pH, urine 5.5 [facility] Comment: Interpretive Data U rine pH is affected by diet, medications, systemic acid-base disturbances, and renal tubular function. pH may affect urinary stone formation. For example, urine pH below 6.0 may help reduce the tendency for calcium phosphate stones and pH greater than 6.0 may reduce the tendency for uric acid stone formation. Source: [facility] Current Interpretive Data was last revised on 2017 Protein, ur ql Trace Negative [facility] Glucose, ur ql Negative Negative [facility] Ketones, ur Negative Negative [facility] Bilirubin, ur Negative Negative [facility] Blood, ur Trace(A) Negative [facility] Urobilinogen, ur <2.0 <2.0 mg/dL [facility] Nitrite, ur Negative Negative [facility] Leukocyte esterase, ur 4+(A) Negative [facility] UA reflex comment Reflex to microscopic UA will be performed. [facility] Urine, clean voided 09/12/2024 12:58 PM CDT 09/12/2024 7:01 PM CDT Starla Trejo NP LAB MICROBIOLOGY - GENERAL ORDERABLES Final Result [facility] [address] [place] [address] * (ABNORMAL) Urinalysis, microscopic only (09/12/2024 12:58 PM CDT) WBC, ur >50(A) 0 - 5 /HPF RBC, ur 3-5(A) 0 - 2 /HPF [facility] Epithelial cells, squamous, ur 6-10(A) 0 - 5 /HPF [facility] Bacteria, ur Trace(A) [facility] Mucous, ur Present(A) [facility] Culture Reflex Comment Reflex to urine culture will be performed. [facility] Urine, clean voided 09/12/2024 12:58 PM CDT 09/12/2024 7:01 PM CDT Starla Trejo NP LAB URINE ORDERABLES Final Result Performing Organization Address [facility] Phone Number [facility] [id number] [facility] [place] [address] * Urine culture Urine, clean voided (09/12/2024 12:58 PM CDT) Report Final Report: Less than 100,000 colonies/mL (clinically insignificant growth based on current clinical standards) Comment:Testing performed by : [facility], [address] [place] [address]., [id number] Organism (CLINICALLY INSIGNIFICANT GROWTH [facility] Urine, clean voided 09/12/2024 12:58 PM CDT 09/12/2024 9:02 PM CDT Narrative [facility] - 09/13/2024 10:03 PM CDT Urine culture reflexed based upon urinalysis results. Testing performed by [facility] ([phone]) Starla Trejo NP LAB MICROBIOLOGY - GENERAL ORDERABLES Final Result Performing Organization Address [facility] Co de Phone Number MACKYAMILETH [address] [place] [address] * Cryptosporidium and Giardia antigen assay Stool (09/09/2024 11:55 AM CDT) Giardia Ag Negative Negative Comment:Testing performed by : [facility], [address] [place]., [address] Cryptosporidium Ag Negative Negative [place] [facility] ([place]) Comment: Interpretive data: Testing performed by the [facility] using an immunoassay that detects Cryptosporidium and Giardia antigens in stool specimens. If comprehensive examination for ova and parasites is required, please request Ova and Parasite Examination. Testing performed by: [facility], [address] [place]., [address] Stool 09/09/2024 11:5 5 AM CDT 09/09/2024 7:18 PM CDT Kane Jara MD LAB MICROBIOLOGY - GENERAL ORDERABLES Final Result [facility] ([place]) 1 [facility] Department [place] [address] * Stool culture Stool Rectum (09/09/2024 11:55 AM CDT) Direct Specimen Exam Shiga Toxin Testing: Antigen detection assay for Shiga-toxin NEGATIVE for Shiga Toxin 1 and Shiga Toxin 2. Comment:Testing performed by : [facility], [address] [place]., [address] Report Final Report: No growth of enteric bacterial pathogens [facility] ([place]) Comment:Testing performed by : [facility], [address] [place]., [address] Stool (Rectum) 09/09/2024 11 :55 AM CDT 09/09/2024 7:16 PM CDT Narrative [facility] ([place]) - 09/13/2024 10:24 AM CDT Specimen was received in a culture and sensitivity stool transport vial. Testing performed by [facility] ([phone]). Routine stool cultures include procedures to detect Salmonella, Shigella, Edwardsiella, Aeromonas, Pleisiomonas, Campylobacter, Yersinia, E. coli O157, and Shiga-like toxins. Vibrio is cultured only upon special request. If Vibrio is suspected, please call the laboratory at [phone]. Interpretive data was last updated July 11, 2016. us Kane Jara MD LAB MICROBIOLOGY - GENERAL ORDERABLES Final Result Performing Organization Address [facility]/ZIP Co de Phone Number [facility]ONARDO [facility] ([place]) 1 [facility] [place] [address] * (ABNORMAL) Thyroid Function [place] (09/09/2024 10:45 AM CDT) TSH 6.15(H) 0.30 - 4.20 mcIUnit/mL Blood 09/09/2024 10:4 5 AM CDT 09/09/2024 11:05 AM CDT us Johnny Marti MD LAB BLOOD ORDERABLES Fi nal Result Performing Organization Address [facility] de Phone Number LEONARDO CONTR[facility] ([place]) [address] [place] [address] * T4, free (09/09/2024 10:45 AM CDT) Pathologist [facility] Free T4 1.20 0.90 - 1.70 ng/dL Blood 09/09/2024 10:4 5 AM CDT 09/09/2024 11:05 AM CDT Narrative [facility]ONARDO CONTR[facility] ([place]) - 09/09/2024 12:59 PM CDT This test was reflexed from a TSH result. Johnny Marti MD LAB BLOOD ORDERABLES Fi nal Result Performing Organization Address [facility] Co de Phone Number LEONARDO CONTRERAS ([place]) 1 [facility] [place] [address] * Vitamin B6 (09/09/2024 10:45 AM CDT) Pyridoxal phosphate (Vit B6) 18 5 - 50 mcg/L [facility] Comment: ADDITIONAL INFORMATION This test was developed and its performance characteristics determined by [facility] in a manner consistent with CLIA requirements. This test has not been cleared or approved by the U.S. Food and Drug Administration. Test Performed by: [facility] [address] [place] [address] Ice Skating Instructor: Austen Haley Ph.D.; CLIA# [id number] Blood 09/09/2024 10:4 5 AM CDT 09/09/2024 11:06 AM CDT Johnny Marti MD LAB BLOOD ORDERABLES Fi nal Result Performing Organization Address [facility] Co de Phone Number LEONARDO CONTRERAS ([place]) [address] [place] [address] [place] [address] [place] ref Lab * Folate (09/09/2024 10:45 AM CDT) Pathologist [facility] Folic acid >20.0 >=5.0 ng/mL Comment:Slightly Hemolyzed S pecimen. Results may be affected. Blood 09/09/2024 10:4 5 AM CDT 09/09/2024 11:05 AM CDT Johnny Marti MD LAB BLOOD ORDERABLES Fi nal Result [facility] ([place]) 1 [facility] [place] [address] * Vitamin B12 (09/09/2024 10:45 AM CDT) Pathologist [facility] Vitamin B12 399 230 - 1,250 pg/mL Blood 09/09/2024 10:4 5 AM CDT 09/09/2024 11:05 AM CDT us Johnny Marti MD LAB BLOOD ORDERABLES Fi nal Result [facility] ([place]) 1 [facility] [place] [address] * Screening Mammogram Bilateral W Praneeth (09/09/2024 10:17 AM CDT) Anatomical Region Laterality Modality Breast Bilateral Mammography Impressions 09/09/2024 12:24 PM CDT Bilateral No evidence of malignancy in either breast. OVERALL BI-RADS FINAL ASSESSMENT: 2 - Benign RECOMMENDATION: Recommend bilateral annual screening mammography. Narrative 09/09/2024 12:24 PM CDT EXAMINATION: Screening Mammogram Bilateral W Praneeth: 09/09/2024 COMPARISON: Relevent prior studies available at the time of interpretation were reviewed, including the most recent mammogram on: 05/23/2023. TECHNIQUE: Mammography was performed with 2D and digital breast tomosynthesis (DBT) images. CAD was utilized. BREAST PARENCHYMAL COMPOSITION: There are scattered areas of fibroglandular density. FINDINGS: A pacer generator is again noted in the upper left breast at posterior depth on MLO view, partially obscuring the breast. There are unchanged benign calcifications in both breasts. There is also an unchanged benign calcified mass in the central outer right breast. There is no new suspicious finding in either breast on mammogram. us Self Screening Mammogram IMG MAMMO PROCEDURES Fi nal Result * (ABNORMAL) Pap and HPV, reflex to HPV Genotypes (09/09/2024 10:06 AM CDT) Clinical indication Comment(A) [facility] - 01 Comment: EPITHELIAL CELL ABNORMALITY. ATYPICAL SQUAMOUS CELLS OF UNDETERMINED SIGNIFICANCE (ASC-US). Specimen adequacy: Comment [facility] - 01 Comment: Satisfactory for evaluation. Endocervical and/or squamous metaplastic cells (endocervical component) are present. Clinician provided ICD10 Comment [facility] 02 Comment: Z01.419 Z01.42 Performed by Comment [facility] 02 Comment:Albaro Arenas (ASCP) Electronically signed by Comment [facility] - 01 Comment:Meme Greco MD, P athologist . . [facility] - Pathologist provided ICD10 Comment [facility] - Comment:R87.610 Note: Comment [facility] 02 Comment: The Pap smear is a screening test designed to aid in the detection of premalignant and malignant conditions of the uterine cervix. It is not a diagnostic procedure and should not be used as the sole means of detecting cervical cancer. Both false-positive and false-negative reports do occur. Test methodology Comment [facility] 02 Comment: This liquid based ThinPrep(R) pap test was screened with the use of an image guided system. HPV Aptima Positive(A) Negative [facility] 03 Comment: This nucleic acid amplification test detects fourteen high-risk HPV types (16,18,31,33,35,39,45,51,52,56,58,59,66,68) without differentiation. HPV Genotype Reflex Comment [facility] - Comment:Criteria not met, HP V Genotype not performed. Thin prep-Endocervical 09/09/2024 10:06 AM CDT 09/09/2024 Narrative [facility] - 09/12/2024 12:11 PM CDT Performed at: - [facility] [place] [address] [facility] [address], [place], [place] [id number] Ice Skating Instructor: Macarena Haynes MD, Phone: [phone] Performed at: - [address] [id number] Ice Skating Instructor: Breonna Pinedo MD, Phone: [phone] Performed at: - [address] [id number] Ice Skating Instructor: Breonna Pinedo MD, Phone: [phone] Specimen Comment: [id number] Specimen Comment: No. of containers..01 ThinPrep Vial us Kane Jara MD LAB CYTOLOGY ORDERABLES Fi nal Result LABCO [facility] - LAB [facility] 02 [facility] 03 * Dexa Axial Skeleton Bone Density 1 or 2 Site (04/27/2021 12:40 PM SHOE FOLDER) Anatomical Region Laterality Modality Body N/A Other 04/27/2021 2:42 PM SHOE FOLDER Narrative 04/27/2021 2:43 PM SHOE FOLDER EXAM DESCRIPTION: DEXA AXIAL SKELETON BONE DENSITY 1 OR MORE SITES REASON FOR STUDY: 86 y/o year old F with given history of screening. Manager Respiratory Care/Model: [employer] SL (S/N [id number]) CLINICAL INFORMATION: Current height: 64 inches Maximum height: 65 inches Weight: 139 pounds Risk factors: Prior fracture and secondary osteoporosis COMPARISON: 05/28/2018 FINDINGS: AP LUMBAR SPINE L1-L4: Total BMD is 0.869 g/cm2 T-score is -1.6 Most recent prior BMD was 0.848 g/cm2 There has been a 2.5% increase in BMD which is not statistically significant. LEFT HIP: Current Total BMD is 0.750 g/cm2 T-score is -1.6 Most recent prior Total BMD was 0.720 g/cm2 There has been a 4.1% increase in BMD which is statistically significant. Current femoral neck BMD is 0.711 g/cm2 T-score is -1.2 IMPRESSION: Low bone mass. Fracture risk assessment (FRAX): 10 year risk for a major osteoporotic fracture is 18 % 10 year risk for a hip fracture is 3.9 % The FRAX tool has not been validated in patients currently or previously treated with pharmacotherapy for osteoporosis. In such patients, clinical judgement must be exercised in interpreting FRAX scores as the fracture risk may be overestimated. REFERENCE: Bone mineral density: Normal (T-score above or = -1.0) Low bone mass (T-score between -1.0 and -2.5) replaces the previously used term osteopenia Osteoporosis (T-score = or below -2.5) Medical evaluation for secondary causes of low bone mineral density may be appropriate. FRAX is a World Health Organization validated fracture risk assessment tool that calculates a person's 10 year probability of a major osteoporosis related fracture and hip fracture. According to the National Osteoporosis Foundation guidelines, postmenopausal women and men age 50 or older with low bone mass and a 10 year probability of a major osteoporosis related fracture = or greater than 20% or a 10 year probability of a hip fracture = or greater than 3% should be considered for treatment. For further information, including treatment recommendations, please refer to the 2013 ISCD Official Positions (http://www.iscd.org) and the NOF's Clinician's Guide to Prevention and Treatment of Osteoporosis (http://www.nof.org/professionals/clinical-guidelines) THIS IS AN ELECTRONICALLY VERIFIED FINAL REPORT 04/27/2021 2:43 PM - Electronically signed by Albina Mcdonough M.D. TB: TB Report ID: [id number] Reading Location: [facility] Procedure Note Albina Mcdonough MD - 04/27/2021 EXAM DESCRIPTION: DEXA AXIAL SKELETON BONE DENSITY 1 OR MORE SITES REASON FOR STUDY: 86 y/o year old F with given history ofscreening. Manager Respiratory Care/Model: [employer] SL (S/N [id number]) CLINICAL INFORMATION: Current height: 64 inches Maximum height: 65 inches Weight: 139 pounds Risk factors: Prior fracture and secondary osteoporosis COMPARISON: 05/28/2018 FINDINGS: AP LUMBAR SPINE L1-L4: Total BMD is 0.869 g/cm2 T-score is -1.6 Most recent prior BMD was 0.848 g/cm2 There has been a 2.5% increase in BMD which is not statisticallysignificant. LEFT HIP: Current Total BMD is 0.750 g/cm2 T-score is -1.6 Most recent prior Total BMD was 0.720 g/cm2 There has been a 4.1% increase in BMD which is statisticallysignificant. Current femoral neck BMD is 0.711 g/cm2 T-score is -1.2 IMPRESSION: Low bone mass. Fracture risk assessment (FRAX): 10 year risk for a major osteoporotic fracture is 18 % 10 year risk for a hip fracture is 3.9 % The FRAX tool has not been validated in patients currently or previously treated with pharmacotherapy for osteoporosis. In such patients, clinical judgement must be exercised in interpreting FRAX scores as the fracturerisk may be overestimated. REFERENCE: Bone mineral density: Normal (T-score above or = -1.0) Low bone mass (T-score between -1.0 and -2.5) replaces thepreviously used term osteopenia Osteoporosis (T-score = or below -2.5) Medical evaluation for secondary causes of low bone mineral density may be appropriate. FRAX is a World Health Organization validated fracture risk assessmenttool that calculates a person's 10 year probability of a major osteoporosisrelated fracture and hip fracture. According to the National OsteoporosisFoundation guidelines, postmenopausal women and men age 50 or older with low bonemass and a 10 year probability of a major osteoporosis related fracture = or greater than 20% or a 10 year probability of a hip fracture = or greaterthan 3% should be considered for treatment. For further information, including treatment recommendations, please referto the 2013 ISCD Official Positions (http://www.iscd.org) and the NOF's Clinician's Guide to Prevention and Treatment of Osteoporosis (http://www.nof.org/professionals/clinical-guidelines) THIS IS AN ELECTRONICALLY VERIFIED FINAL REPORT 04/27/2021 2:43 PM - Electronically signed by Albina Mcdonough M.D. TB: TB Report ID: [id number] Reading Location: [facility] Iraida Price HIDE SPLITTER IMG DXA PROCEDURES Final Re sult from Last 3 Months or Most Recently Relevant to Health Maintenance Insurance IDPA [facility] MDCR HMO REF [facility] MDCR HMO REF [facility] MEDICARE ADVANTAGE Advance Directives For more information, please contact: [phone] * LIMITED - No CPR (Latest Code Status on File) Date Activated Date Inactivated Comments 07/05/2024 5:46 PM 07/06/2024 6:55 PM * LIMITED - No CPR Date Activated Date Inactivated Comments 01/29/2023 4:33 PM 01/30/2023 9:07 PM Question Answer Comments Provide aggressive medical m anagement before a full cardiopulmonary arrest occurs. Use antibiotics, IV Fluids, and medical treatment unless specifically selected below: No intubation * Full Code Date Activated Date Inactivated Comments 01/29/2023 12:39 PM 01/29/2023 4:33 PM * Full Code Date Activated Date Inactivated Comments 04/15/2022 10:21 AM 04/15/2022 5:20 PM * Full Code Date Activated Date Inactivated Comments 03/16/2021 12:41 AM 2021 5:19 PM Care Teams Train System Operator Relationship Specialty Start Date End Date Miki Johnson MD [address] [place] [address] PCP - General 01/21/19 Kane Jara MD [address] [place] [address] [place] [address] Clerical Adviser Obstetrics and Gynecology 12/17/18 Puja Clement NP [address] [place] [address] [place] [address] Nurse Practitioner Gastroenterology 12/17/18 Brianda Lopez MD [address] [address] Consulting Physician Gastroenterology 03/20/21 Vito Pang MD [address] [facility] [address] [place] [address] Surgeon General Surgery 01/27/24 Trever Mitchell MD [address] [facility] [address] [place] [address] Consulting Physician Cardiovascular Disease 09/12/24
--- OUTSIDE RECORDS SUMMARY | 2024-12-02 11:50 | XMS_ITS | Encounter Summary ---
Author Organization [facility] Healthcare Address [address] [place] [address] Care Team Providers Care Management Architect Name Role Phone Kane Jara MD Unavailable [phone] Puja Clement NP Unavailable [phone] Miki Johnson MD Primary Care Provider [phone] Brianda Lopez MD Unavailable [phone] Vito Pang MD Unavailable [phone] Chaim Mitchell MD Unavailable [phone] Anne-Marie Graves RN Unavailable [phone] Encounter Details Date Type Department Care Team (Late st Contact Info) Description 11/16/2024 Results Follow-Up [facility] Emergency Department 1 [place] [address] Yovany Canchola PA 1 [facility] [place] [address] Urine culture Urine Social History Tobacco Use Types Packs/Day Years [...] relatives? Three times a week 03/22/2021 Attends Taoism Services Not on file 03/22 Do you belong to any clubs o r organizations such as episcopalian groups, unions, fraternal or athletic groups, or [...] place to sleep or slept in a chcf (including now)? No 03/22/2021 Personal Safety Answer Date Recorded Have you ever been in or are you currently in a harmful physical or emotional relationship or is someone making you feel afraid or unsafe? 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 [address] [place] [address] Reconstructive Dentist Obstetrics and Gynecology 12/17/18 Puja Clement NP [address] [facility] [address] [place] [address] Nurse Practitioner Gastroenterology 12/17/18 Brianda Lopez MD [address] [place] [address] Consulting Physician Gastroenterology 03/20/21 Vito Pang MD [address] [facility] [address] [place] [address] Surgeon General Surgery 01/27/24 Chaim Mitchell MD [address] [facility] [address] [place] [address] Consulting Physician Cardiovascular Disease 09/12/24 Anne-Marie Graves RN [address] [place] [address] [address] [place] [address] Post Tensioning Ironworker 10/28/24 11/18/24 documented as of this encounter
--- OUTSIDE RECORDS SUMMARY | 2024-12-02 11:50 | XMS_ITS | Clinical Summary ---
Author Organization [facility] Address [address] [place] [address] Phone Care Team Providers Care Yard Stocker Name Role Phone Unavailable Primary Care Provider Unavailabl e Allergies Active Allergy Reactions Criticality Noted Date Comments Hydrocodone-Acetaminop hen Hallucination Low 01/23/2013 Penicillins Other (See Comments) 01/23/2013 Had similar reaction as would get with rheumatic fever per pt Medications aspirin (ECOTRIN EC) 81 mg Tablet, Delayed Release (E.C.) Take 81 mg by mouth daily. Active calcium carbonate + vitamin D (CALTRATE+D) 600 mg(1,500mg) -400 unit Tablet Take 1 Tab by mouth daily. Active GLUCOSAMINE HCL/CHONDR LOWE A NA (OSTEO BI-FLEX ORAL) Take 1 Tab by mouth 2 times daily. Active carvedilol (COREG) 6.25 mg tablet Take 6.25 mg by mouth 2 times daily with meals. Active furosemide (LASIX) 40 mg tablet Take 20 mg by mouth daily. Active losartan (COZAAR) 25 mg tablet Take 25 mg by mouth daily. Active metoclopramide HCl (REGLAN) 5 mg tablet Take 5 mg by mouth 2 times daily. Active multivitamin (DAILY-JE) tablet Take 1 Tab by mouth daily. Active omeprazole (PRILOSEC) 40 mg Capsule, Delayed Release(E.C.) Take 40 mg by mouth daily at bedtime. Active simvastatin (ZOCOR) 20 mg tablet Take 20 mg by mouth daily at bedtime. Active IRON, FERROUS SULFATE, ORAL Take 1 Tab by mouth daily. Active DOCUSATE CALCIUM (STOOL SOFTENER ORAL) Take 1 Tab by mouth daily. Active ibuprofen (MOTRIN) 600 mg tablet Take 1 Tab by mouth every 6 hours. 60 Tab 1 01/25/2013 Active HYDROcodone-acet aminophen (NORCO) 5-325 mg tablet Take 1 Tab by mouth every 4 hours as needed for Pain, Moderate. 40 Tab 1 01/25/2013 Active Active Problems Problem Noted Date Diagnosed Date Acute blood loss anemia 01/27/2013 Leukocytosis 01/27/2013 GERD (gastroesophageal reflux disease) 3 Malignant neoplasm of corpus uteri, except isthm us 01/25/2013 CHF (congestive heart failure) 01/25/2013 Immunizations Immunization Administration Dates Next Due Influenza Seasonal Unspecified Formulation IM Pneumococcal conjugate, unspecified formulation 01/26/2011 Social History Tobacco Use Types Packs/Day Years Used Date Smoking Tobacco: Former Cigarettes Q uit: 03/06/1974 Smokeless Tobacco: Never Alcohol Use Standard Drinks/Week Comments No 0 (1 standard drink = 0.6 oz pur e alcohol) Comments No Sex and Gender Information Value Date Recorded Sex Assigned at Not on file Legal Sex Female 12:14 PM SAND TEMPERER Gender Identity Not on file Sexual Orientation Not on file Last Filed Vital Signs Vital Sign Reading Time Taken Comments Blood Pressure 116/63 01/26/2013 11:48 AM SAND TEMPERER Pulse 69 01/26/2013 11:48 AM SAND TEMPERER Temperature 36.9 C (98.4 F) 01/26/2013 11:48 AM SAND TEMPERER Respiratory Rate 14 01/26/2013 11:48 AM SAND TEMPERER Oxygen Saturation 93% 01/26/2013 11:48 AM SAND TEMPERER Inhaled Oxygen Concentration - - Weight 60.9 kg (134 lb 3.2 oz) 01/25/2013 11:05 AM SAND TEMPERER Height 162.6 cm (5' 4) 01/23/2013 3:21 PM SAND TEMPERER Body Mass Index 23.04 01/23/2013 3:21 PM SAND TEMPERER Plan of Treatment Health Maintenance Due Date Last Done Comments DTAP/TDAP/TD VACCINES (1 - Tdap) 1954 PNEUMOCOCCAL VACCINE 50+ YEARS (1 of 1 - PCV) 03/20/18 88 01/26/2011 ZOSTER VACCINE (1 of 2) 1987 OSTEOPOROSIS SCREENING 2002 RSV VACCINE (60+ or ) (1 - 1-dose 75+ series) 2012 INFLUENZA VACCINE (#1) 2024 12/04/2012 Medical Devices Implanted Type Area Customer Account Technician Device Identifier Shelf Expiration Date Model / Serial / Lot Left Hip Replacement Implanted:(Quantit y not on file) Explanted:(Quantit y not on file) Pacemaker Implanted:(Quantit y not on file) Explanted:(Quantit y not on file) Insurance [facility] Address: [place] [address] Advance Directives For more information, please contact: [phone] * Full Code (Latest Code Status on File) Date Activated Date Inactivated Comments 01/25/2013 5:48 PM 01/26/2013 5:50 PM * Full Code Date Activated Date Inactivated Comments 01/25/2013 11:07 AM 01/25/2013 5:48 PM
--- OUTSIDE RECORDS SUMMARY | 2024-12-02 11:50 | XMS_ITS | Encounter Summary ---
Author Organization [facility] Healthcare Address [address] [place] [address] Care Team Providers Care Legal Technician Name Role Phone Kane Jara MD Unavailable [phone] Puja Clement NP Unavailable [phone] Miki Johnson MD Primary Care Provider [phone] rBianda Lopez MD Unavailable [phone] Vito Pang MD Unavailable [phone] Chaim Mitchell MD Unavailable [phone] Andree Calloway MA Unavailable [phone] Anne-Marie Graves RN Unavailable [phone] Encounter Details Date Type Department Care Team (Late st Contact Info) Description 10/24/2024 Results Follow-Up [facility] Emergency Department 1 [place] [address] Jasson Murcia MD [address] [place] [address] Urine culture Urine Social History Tobacco Use [...] relatives? Three times a week 03/22/2021 Attends Gnosticism Services Not on file 03/22 Do you belong to any clubs o r organizations such as sabianist groups, unions, fraternal or athletic groups, or [...] place to sleep or slept in a jail (including now)? No 03/22/2021 Personal Safety Answer Date Recorded Have you ever been in or are you currently in a harmful physical or emotional relationship or is someone making you feel afraid or unsafe? 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 Gender Identity Not on file Sexual Orientation Not on file documented as of this encounter Plan of Treatment Not on file documented as of this encounter Visit Diagnoses Not on filedocumented in this encounter Care Teams Legal Technician Relationship Specialty Start Date End Date Miki Johnson MD [address] [place] [address] PCP - General 01/21/19 Kane Jara MD [address] [facility] [address] [place] [address] Drawer In Hand Obstetrics and Gynecology 12/17/18 Puja Clement NP [address] [facility] [address] [place] [address] Nurse Practitioner Gastroenterology 12/17/18 Brianda Lopez MD [address] [place] [address] Consulting Physician Gastroenterology 03/20/21 Vito Pang MD [address] [facility] [address] [place] [address] Surgeon General Surgery 01/27/24 Chaim Mitchell MD [address] [facility] [address] [place] [address] Consulting Physician Cardiovascular Disease 09/12/24 Andree Calloway MA [address] [place] [address] [address] [place], [place] [id number] ACO Care Underwriter Solicitation Director 10/25/24 10/27/24 Anne-Marie Graves RN [address] [place] [address] [address] [place] [address] Client Retention Specialist 10/28/24 11/18/24 documented as of this encounter
--- OUTSIDE RECORDS SUMMARY | 2024-12-02 11:50 | XMS_ITS ---
Author Organization [facility] Address [address] [place] [address] Care Team Providers Care Latin Professor Name Role Phone Kane Jara MD Unavailable [phone] Puja Clement NP Unavailable [phone] Miki Johnson MD Primary Care Provider [phone] Brianda Lopez MD Unavailable [phone] Vito Pang MD Unavailable [phone] Chaim Mitchell MD Unavailable [phone] Active Problems Problem Noted Date Diagnosed Date [...] but no CP. Would like to change wood carver hand. Will place a new referral. Insect bite [...] activity. Assessment & Plan (03/25/2021 2:10 PM CLINICAL THERAPIST): Discussed healthy diet and importance of regular physical activity. Discussed Boost/protein drinks to help increase protein level (CMP showing protein=5.7). Ileus 03/16/2021 Assessment & Plan (03/26/2021 8:02 AM CLINICAL THERAPIST): Reviewed notes from [facility] from February & March admission w/Mrs Cruz as well as imaging results. No further [...] time. Assessment & Plan (03/02/2021 6:14 PM CLINICAL THERAPIST): Presented with abdominal pain, distension, nausea and [...] patient. 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 Replacement with [employer] Momentum PUBLIC AREA SUPERVISOR-D on 15 April 2022 (RL). Normal LVEF of 60% on echo 30 January 2023. Assessment & Plan (08/08/2024 2:01 PM CDT): Discussed today's ICD rep check showing great numbers. Left upper chest site looks fine. No atrial fibrillation noted although she feels palpitations at times. Exam in the office today revealed an occasional premature beat. Assessment & Plan (04/22/2022 12:46 PM CLINICAL THERAPIST): No problems since ICD replacement. No pain [...] 03/28/2018 Assessment & Plan (03/28/2018 1:48 PM CLINICAL THERAPIST): Clinically resolved. H/O TIA (transient ischemic attack) and stroke 0 03/28/2018 Assessment & Plan (03/28/2018 1:50 PM CLINICAL THERAPIST): Currently Asx. Referred to neurology for further [...] daily, will notify our office and her wood carver hand if readings are consistently >130 systolic. Instructed patient to schedule follow up apt with her wood carver hand. Encouraged adequate hydration. Reviewed s/s warranting immediate evaluation. Assessment & Plan (06/25/2021 2:35 PM CDT): Blood pressure well controlled on current medication regimen. Patient is followed by Cardiology. Assessment & Plan (03/02/2021 6:21 PM CLINICAL THERAPIST): Home meds Coreg and losartan currently on [...] meds. Assessment & Plan (2018 1:22 PM CLINICAL THERAPIST): Hypertension is improving with treatment. Continue current [...] cholesterol Assessment & Plan (03/26/2021 8:00 AM CLINICAL THERAPIST): Lab Results Component Value Date CHOL 113 [...] flags. Assessment & Plan (03/02/2021 6:18 PM CLINICAL THERAPIST): Home Zocor switched to Lipitor while admitted. Assessment & Plan (12/17/2018 3:02 PM CDT): Stable. Cont. Current meds. Managed by cardiology. Assessment & Plan (03/28/2018 1:49 PM CLINICAL THERAPIST): Encouraged compliance with current medication and dosage. Simvastatin 20 mg qhs. Assessment & Plan (2018 1:23 PM CLINICAL THERAPIST): Lipid abnormalities are improving with treatment. Nutritional [...] Thyroid nodule 12/10/2012 Overview (06/08/2016): Thyroid nodule Current Treatment and Therapy Plans No current plan information found. Past Treatment and Therapy Plans Oncology Supportive Care Therapy Plan Plan Name Start Date Discontinue Date Treatment Medications Discontinue Reason Plan Provider IV MAINTENANCE THERAPY PLAN 03/22/2017 02/13/2018 No medications scheduled. Therapy Complete Callum Lunsford MD Lifetime Dose Tracking * Chemical Lifetime Dose Automatic Entry Manual Entr y Fluoro Time 0.6 minutes 0.6 minutes 0 minutes Air kerma at the reference point (Ka,r) 22.7 mGy 2 2.7 mGy 0 mGy Resolved Problems Problem Noted Date Diagnosed Date Resolved Date Cholecystitis 01/25/2024 02/09/2024 Abscess of right external ear 11/09/2023 11/09/2023 Urinary tract infection 01/31/202301/05 Bronchitis 01/31/2023 01/31/2023 Upper respiratory infection 03/01/2021 03/26/2021 Need for immunization against influenza 12/22/2020 03/26/2021 BMI 25.0-25.9,adult 12/09/2019 03/25/19 22 Assessment & Plan (12/22/2020 1:46 PM CDT): Discussed healthy diet and importance of regular physical activity. Acute bronchitis 07/02/2018 03/25/2021 Assessment & Plan (03/02/2021 6:20 PM CLINICAL THERAPIST): Pt notes that she has been coughing [...] (01/06/2018): Added automatically from request for surgery [id number] Keratosis, senilis 08/26/2016 9 Skin benign neoplasm 08/26/2016 019 Gastroesophageal reflux disease 06/06/2014 12/17/2018 Overview (06/10/2016): GERD Assessment & Plan (12/17/2018 3:02 PM CDT): Resolved. Assessment & Plan (10/30/2018 3:16 PM CDT): Pt has very occasional heartburn. She takes TUMS prn which helps relieve this. She may continue to do this. Assessment & Plan (09/27/2018 12:43 PM CDT): She may use any dbbe-urs-hekiafk anti acid such as ranitidine or Pepcid as needed. Assessment & Plan (01/01/2018 3:47 PM CDT): Mild, takes antacids if needed. Adenocarcinoma 06/06/2014 08/14/2023 Overview (06/10/2016): Adenocarcinoma Acute blood loss anemia 01/27/201312/04 Generalized anxiety disorder 11/01/2010 2018 Overview (06/10/2016): Anxiety
--- OUTSIDE RECORDS SUMMARY | 2024-12-02 11:50 | XMS_ITS | Clinical Summary ---
Author Organization [facility] Address [address] [place] [address] Phone Care Team Providers Care Vp Hr Diversity Name Role Phone Miki Johnson MD Primary Care Provider [phone] Medications No known medications Encounters Date Type Department Care Team Description 10/28/2024 1:08 PM CDT - 10/28/2024 6:34 PM CDT Emergency [facility] Emergency [address] [place] [address] Mickey To, HOLLI Chronic diarrhea Discharge Disposition: Discharged to home or Selfcare 10/28/2024 Travel from Last 3 Months Social History Tobacco Use Types Packs/Day Years Used Date Smoking Tobacco: Never Assessed Comments Unknown Sex and Gender Information Value Date Recorded Sex Assigned at Not on file Legal Sex Female 12:14 AM CDT Gender Identity Not on file Sexual Orientation Not on file Last Filed Vital Signs Vital Sign Reading Time Taken Comments Blood Pressure 136/53 10/28/2024 6:15 PM CDT Pulse 71 10/28/2024 6:15 PM CDT Temperature 36.2 C (97.2 F) 10/28/2024 1:04 PM CDT Respiratory Rate 16 10/28/2024 6:15 PM CDT Oxygen Saturation 97% 10/28/2024 6:15 PM CDT Inhaled Oxygen Concentration - - Weight 54.4 kg (120 lb) 10/28/2024 1:04 PM CDT Height 167.6 cm (5' 6) 10/28/2024 1:04 PM CDT Body Mass Index 19.37 10/28/2024 1:04 PM CDT Plan of Treatment Health Maintenance Due Date Last Done Comments Hepatitis C Virus (HCV) Screening 1935 DEXA Bone Density 04/27/2023 04/27/2021, , 05/27/2016 Welcome to Medicare (IPPE) G0402 04/06/2024 Influenza Immunization (#1) 2024 09/0 07/2023, 11/22/2022, 12/04/2021, Additional history exists SARS-COV-2 Immunization ( season) 2024 11/30/2020, 06/16/2020, 05/19/2020 Pneumococcal Immunization (50+ years) Completed 12/03/2017, 08/08/2012, 01/26/2011, Additional history exists TdaP Immunization Completed 12/03/2017 Respiratory Syncytial Virus (RSV) Immunization (Adult) Completed 11/22/2022 Zoster Immunization Completed 04/03/2023, 01/23/2023, 08/15/2012 Hepatitis B Immunization Aged Out No longer eligible based on patient's age to complete this topic Human Papillomavirus (HPV) Immunization Aged Out No longer eligible based on patient's age to complete this topic Meningococcal Immunization (ACWY) Aged Out No longer eligible based on patient's age to complete this topic Rotavirus Immunization Aged Out No lo nger eligible based on patient's age to complete this topic Procedures Procedure Name Priority Date/Time Associated Diagnosis Comments O & P, TRAVEL HX OR IMMUNOCOMPROMISED, FECES, [place] OPE STAT 10/28/2024 4:57 PM CDT STOOL, WBC LACTOFERRIN STAT 10/28/2024 4:57 PM CDT STOOL, OVA & PARASITES (O&P) STAT 10/28/2024 4:57 PM CDT C. DIFF BY PCR STAT 10/28/2024 4:57 PM CDT C. DIFFICILE BY PCR STAT 10/28/2024 4 :57 PM CDT CULTURE, STOOL STAT 10/28/2024 4:57 PM CDT CBC WITH AUTO DIFFERENTIAL STAT 10/28/2024 1:31 PM CDT CMP (COMPREHENSIVE METABOLIC PANEL) STAT 10/28/2024 1:31 PM CDT COMPLETE BLOOD COUNT (CBC) WITH DIFF STAT 10/28/2024 1:31 PM CDT from Last 3 Months Results * O & P, TRAVEL HX OR IMMUNOCOMPROMISED, FECES, [place] OPE (10/28/2024 4:57 PM CDT) [facility] OPE, OVA AND PARASITE, MICROSCOPY, F SEE NOTE 11/03/2024 10:34 AM CDT [facility] Comment: SOURCE: STOOL, STLP OVA AND PARASITE, MICROSCOPY, F FINAL No parasites seen. Cryptosporidium, Cyclospora, and microsporidia are not readily detected by this method. Single negative specimen does not rule out parasitic infection. Test Performed by: [place] [address] Tomato Pulper Operator: Austen Haley Ph.D.; CLIA# [id number] Stool Non-Phlebotomy Collection / Unknown 10/28/2024 4:57 PM CDT 10/28/2024 5:36 PM CDT Mickey To PAC LAB SEND OUTS Opal l Result [facility] US * C. DIFF BY PCR (10/28/2024 4:57 PM CDT) [facility] C DIFF TOXIN DNA BY PCR Negative Negative, Invalid 10/28/2024 6:42 PM CDT [facility] Other STOOL SPECIMEN / Unknown Non-Phlebotomy Collection / Unknown 10/28/2024 4:57 PM CDT 10/28/2024 5:34 PM CDT Mickey To PAC MICROBIOLOGY - GENER AL ORDERABLES Final Result [facility] [address] [place] [address] * Culture, Stool [id number] (10/28/2024 4:57 PM CDT) CULTURE RESULTS NEGATIVE FOR CAMPYLOBACTER ANTIGEN 10/30/2024 2:03 PM CDT [facility] CULTURE RESULTS SHIGA TOXIN 1 AND SHIGA TOXIN 2 NOT DETECTED 10/30/2024 2:03 PM CDT [facility] CULTURE RESULTS Moderate Probable usual eric for this specimen source 10/30/2024 2:03 PM CDT [facility] Culture STOOL SPECIMEN / Unknown Non-Phlebotomy Collection / Unknown 10/28/2024 4:57 PM CDT 10/28/2024 6:47 PM CDT Narrative [facility] - 10/30/2024 2:03 PM CDT Unless stated above as an isolate, no Salmonella, Shigella, E Coli O157, Aeromonas, or Pleisiomonas species isolated Mickey To PAC MICROBIOLOGY - GENER AL ORDERABLES Final Result Performing Organization Address City/[facility]/ZIP Co de Phone Number [facility] [address] [place] [address], [place] * Stool, WBC Lactoferrin (10/28/2024 4:57 PM CDT) Pathologist [facility] STOOL WBC LACTOFERRIN Negative Negative 10/29/2024 3:45 PM CDT [facility] Other STOOL SPECIMEN / Unknown Non-Phlebotomy Collection / Unknown 10/28/2024 4:57 PM CDT 10/28/2024 5:34 PM CDT Mickey To PAC BODY FLUIDS & STOOLS ORDERABLES Final Result Performing Organization Address City/[facility]/ZIP Co de Phone Number [facility] [address] [place] [address], [place] * (ABNORMAL) CBC with Auto Differential (10/28/2024 1:31 PM CDT) Pathologist [facility] WBC 6.90 4.00 - 12.00 10(3)/mcL 10/28/2024 1:44 PM CDT [facility] RBC 3.65(L) 3.80 - 5.30 10(6)/mcL 10/28/2024 1:44 PM CDT [facility] HEMOGLOBIN (HGB) 10.8(L) 12.0 - 15.8 g/dL 10/28/2024 1:44 PM CDT [facility] HEMATOCRIT (HCT) 33.8(L) 36.0 - 47.0 % 10/28/2024 1:44 PM CDT [facility] MCV 92.6 82.0 - 96.0 fL 10/28/2024 1:44 PM CDT [facility] MCH 29.6 26.0 - 34.0 pg 10/28/2024 1:44 PM CDT [facility] MCHC 32.0 31.0 - 36.0 g/dL 10/28/2024 1:44 PM CDT [facility] PLATELET COUNT 165 140 - 440 10(3)/mcL 10/28/2024 1:44 PM CDT [facility] RDW 15.1 11.8 - 15.5 % 10/28/2024 1:44 PM CDT [facility] MPV 11.3 9.7 - 12.4 fL 10/28/2024 1:44 PM CDT [facility] NEUTROPHILS 69.1 47.0 - 73.0 % 10/28/2024 1:44 PM CDT [facility] LYMPHOCYTES 17.2(L) 18.0 - 42.0 % 10/28/2024 1:44 PM CDT [facility] MONOCYTES 10.7 4.0 - 12.0 % 10/28/2024 1:44 PM CDT [facility] EOSINOPHILS 2.3 0.0 - 5.0 % 10/28/2024 1:44 PM CDT [facility] BASOPHILS 0.4 0.0 - 1.0 % 10/28/2024 1:44 PM CDT [facility] IMMATURE GRANULOCYTE 0.3 0.0 - 0.4 % 10/28/2024 1:44 PM CDT [facility] ABSOLUTE NEUTROPHILS 4.76 1.60 - 7.70 10(3)/[facility] 10/28/2024 1:44 PM CDT [facility] ABSOLUTE LYMPHOCYTES 1.19(L) 1.30 - 3.20 10(3)/[facility] 10/28/2024 1:44 PM CDT [facility] ABSOLUTE MONOCYTES 0.74 0.20 - 1.00 10(3)/[facility] 10/28/2024 1:44 PM CDT [facility] ABSOLUTE EOSINOPHIL 0.16 0.00 - 0.40 10(3)/[facility] 10/28/2024 1:44 PM CDT [facility] ABSOLUTE BASOPHILS 0.03 0.00 - 0.10 10(3)/[facility] 10/28/2024 1:44 PM CDT [facility] ABSOLUTE IMMATURE GRANULOCYTE 0.02 0.00 - 0.03 10 (3) mcL. 10/28/2024 1:44 PM CDT [facility] NRBC PER 100 WBC 0 10/29/19 1:44 PM CDT [facility] Blood Venipuncture / Unknown 10/28/2024 1:31 PM CDT 10/28/2024 1:42 PM CDT us Mickey To PAC HEMATOLOGY ORDERABLE S Final Result [facility] [address] [place] [address] * (ABNORMAL) CMP (10/28/2024 1:31 PM CDT) SODIUM 137 136 - 145 mmol/L 10/28/2024 2:03 PM CDT [facility] POTASSIUM 3.9 3.5 - 5.1 mmol/L 10/28/2024 2:03 PM CDT [facility] CHLORIDE 107 98 - 107 mmol/L 10/28/2024 2:03 PM CDT [facility] CO2, VENOUS 23 22 - 30 mmol/L 10/28/2024 2:03 PM CDT [facility] ANION GAP 10.9 <18.0 mmol/L 10/28/2024 2:03 PM CDT [facility] GLUCOSE 103(H) 70 - 99 mg/dL 10/28/2024 2:03 PM CDT [facility] BUN 33(H) 10 - 20 mg/dL 10/28/2024 2:03 PM CDT [facility] CREATININE, BLOOD 1.02(H) 0.60 - 1.00 mg/dL 10/28/2024 2:03 PM CDT [facility] BUN/CREATININE RATIO 32(H) 12 - 20 ratio 10/28/2024 2:03 PM CDT [facility] TOTAL PROTEIN 6.5 6.0 - 8.0 g/dL 10/28/2024 2:03 PM CDT [facility] ALBUMIN 3.9 3.5 - 5.0 g/dL 10/28/2024 2:03 PM T [facility] A/G RATIO 1.5 1.0 - 2.2 10/28/2024 2:03 PM CDT [facility] CALCIUM 9.2 8.7 - 10.5 mg/dL 10/28/2024 2:03 PM CDT [facility] T BILI 0.4 0.2 - 1.2 mg/dL 10/28/2024 2:03 PM CDT [facility] SGOT (AST) 42 <43 U/L 10/28/2024 2:03 PM T [facility] SGPT (ALT) 42 <56 U/L 10/28/2024 2:03 PM CDT [facility] ALKALINE PHOSPHATASE 73 40 - 150 U/L 10/28/2024 2:03 PM CDT [facility] GFR, ESTIMATED 53(L) >=60 10/28/2024 2:03 PM CDT [facility] Comment: Creatinine Clearance is the preferred criteria for selecting drug dose adjustments in renally impaired patients. The GFR is provided as additional pertinent clinical information. GFR is reported in mL/min/1.73 sq m. Calculation based on the 2020 Chronic Kidney Disease Epidemiology Collaboration (CKD-EPI) equation refit without adjustment for race. GFR, EST. >60 >=60 025 2:03 PM CDT [facility] Comment: Creatinine Clearance is the preferred criteria for selecting drug dose adjustments in renally impaired patients. The GFR is provided as additional pertinent clinical information. GFR is reported in mL/min/1.73 sq m. Calculation based on the 2009 Chronic Kidney Disease Epidemiology Collaboration (CKD-EPI). GFR, EST. NONAFRICAN 51(L) >=60 10/28/2024 2:03 PM CDT [facility] Comment: Creatinine Clearance is the preferred criteria for selecting drug dose adjustments in renally impaired patients. The GFR is provided as additional pertinent clinical information. GFR is reported in mL/min/1.73 sq m. Calculation based on the 2009 Chronic Kidney Disease Epidemiology Collaboration (CKD-EPI). Blood Venipuncture / Unknown 10/28/2024 1:31 PM CDT 10/28/2024 1:42 PM CDT Mickey To PAC CHEMISTRY ORDERABLES Final Result Performing Organization Address City/State/[facility] Co de Phone Number [facility] [address] [place] [address] from Last 3 Months Insurance [facility]IC[facility] [place] Care Teams Vp Hr Diversity Relationship Specialty Start Date End Date [place] [address] PCP - General Internal Medicine 10/28/24
--- OUTSIDE RECORDS SUMMARY | 2024-12-02 11:50 | XMS_ITS | Encounter Summary ---
Author Organization [facility] Address [address] [place] [address] Phone Care Team Providers Care Conduit Mechanic Name Role Phone Miki Johnson MD Primary Care Provider [phone] Ashley Núñez LPN Unavailable UnavailAyana Encarnacion DO Primary Care Provider [phone] Ashley Núñez LPN Unavailable Unavailabl Opal Degroot RN Unavailable [phone] Kane Jara MD Unavailable [phone] Puja Clement NP Unavailable [phone] Miki Johnson MD Primary Care Provider [phone] Belinda Gross RN Unavailable Brianda Lopez MD Unavailable [phone] Barby Hopson MA Unavailable [phone] Vito Pang MD Unavailable [phone] Chaim Mitchell MD Unavailable [phone] Andree Calloway MA Unavailable [phone] Anne-Marie Graves RN Unavailable [phone] Encounter Details Date Type Department Care Team (Late st Contact Info) Description 06/22/2017 Orders Only [facility] ProviderBrandy MD [address] [place] [address] Social History Tobacco Use Types Packs/Day Years Used Date Smoking Tobacco: Former Smokeless Tobacco: Never Comments:Smoking History Pac ks/day: 3 Packs Alcohol Use Standard Drinks/Week Comments No 0 (1 standard drink = 0.6 oz pur e alcohol) Comments No Sex and Gender Information Value Date Recorded Sex Assigned at Not on file Legal Sex Female 10:33 AM RFID SPECIALIST Gender Identity Not on file Sexual Orientation Not on file documented as of this encounter Plan of Treatment Not on file documented as of this encounter Procedures Procedure Name Priority Date/Time Associated Diagnosis Comments DISCHARGE LABORATORY CUMULATIVE REPORT 06/22/2017 12:00 AM CDT documented in this encounter Results * DISCHARGE LABORATORY CUMULATIVE REPORT (06/22/2017 12:00 AM CDT) Narrative 06/22/2017 12:00 AM CDT Ordered by an unspecified provider. us Historical Provider LAB BLOOD ORDERABLES Opal l Result documented in this encounter Visit Diagnoses Not on filedocumented in this encounter Additional Health Concerns Infection Onset Date Last Indicated Resolved Time COVID: Suspected 03/01/2021 03/01/2021 03/01/2021 8:05 PM RFID SPECIALIST C. difficile suspected 12/15/2023 12/18/202312/15 3:07 AM CDT C. difficile suspected 12/18/2023 12/18/202312/17 4:25 PM CDT documented as of this encounter Care Teams Conduit Mechanic Relationship Specialty Start Date End Date Miki Johnson MD [address] [place] [address] PCP - General 05/22/17 12/31/17 Ayana [place] [address] [place] [address] PCP - General Family Medicine 01/01/18 01/20/19 Miki Johnson MD [address] [place] [address] PCP - General 01/21/19 Ashley Núñez LPN [address] [place] [address] Preschool Teacher Assistant 10/26/17 10/26/17 Ashley Núñez LPN [address] [place] [address] Preschool Teacher Assistant 01/12/18 03/15/18 Opal Sloan RN [address] [place] [address] Preschool Teacher Assistant 03/19/18 10/24/18 Kane Jara MD [address] [place] [address] [address] [place] [address] Academic Support Coordinator Obstetrics and Gynecology 12/17/18 Puja Clement NP [address] [place] [address] [address] [place] [address] Nurse Practitioner Gastroenterology 12/17/18 Belinda Gross, BRE [address] [place] [address] [address] [place], [place] [id number] Preschool Teacher Assistant 03/08/21 04/21/21 Brianda Lopez MD [address] [place] [address] [address] [place], [place] [id number] Consulting Physician Gastroenterology 03/20/21 Barby Hopson MA [address] [place] [address] [address] [place], [place] [id number] ACO Care Investigator Narcotics 04/14/22 04/14/22 Vito Pang MD [address] [place] [address] [address] [place] [address] Surgeon General Surgery 01/27/24 Chaim Mitchell MD [address] [facility] [address] [place] [address] Consulting Physician Cardiovascular Disease 09/12/24 Andree Calloway MA [address] [facility] [address] [place] [address] ACO Care Investigator Narcotics 10/25/24 10/27/24 Anne-Marie Graves RN [address] [facility] [address] [place] [address] Preschool Teacher Assistant 10/28/24 11/18/24 documented as of this encounter
== END 2024-12-02 12:29 | disposition home or self-care (01) ==
PROVIDERS: Emergency Provider Nurse Practitioner; PCP Family Medicine
DX: S22.31XA Fracture of one rib, right side, initial encounter for closed fracture (principal); W19.XXXA Unspecified fall, initial encounter; I10 Essential (primary) hypertension
CPT/HCPCS: 71100; 81003; 87086; 87186; 99213; G0463